=== PATIENT | female | born 1930 | race Hispanic/Latino ===

== ENCOUNTER 2017-04-30 08:07 | Outpatient (CLI) | payer MEDICARE | END 2017-04-30 08:08 | disposition home or self-care (01) | LOC: CT 08:07 | PROVIDERS: ATTEND Surgery Vascular Surgery | DX: I65.23 Occlusion and stenosis of bilateral carotid arteries (principal); I87.2 Venous insufficiency (chronic) (peripheral); J45.909 Unspecified asthma, uncomplicated; N18.2 Chronic kidney disease, stage 2 (mild); I11.0 Hypertensive heart disease with heart failure; I50.9 Heart failure, unspecified; J18.9 Pneumonia, unspecified organism; E78.00 Pure hypercholesterolemia, unspecified; Z87.891 Personal history of nicotine dependence | CPT/HCPCS: 36415; 82565; 84520 ==

== ENCOUNTER 2017-05-07 10:19 | Day surgery (SDC) | payer MEDICARE ==
[2017-05-07 11:26] LABS: BUN/Creatinine Ratio 22.27; Calcium 9.2 mg/dL (8.4-10.2); Chloride 100.2 mmol/L (98-107); Potassium 4.5 mmol/L (3.6-5.0)
[2017-05-07] MEDS ORDERED: NACL 0.9% 1000 ML 1,000 ML IV SCH (11:30)
[2017-05-07] MEDS ORDERED: NACL ONE (13:29)
--- NOTE | 2017-05-07 16:13 | Cat Scan Report ---
CT angiography of the neck with 3-D reconstructed images. History: Carotid stenosis. Findings: Comparison is made to the previous study on April 25, 2016. Since prior study, the patient undergone left endarterectomy. The previous described stenosis at the left carotid bulb is no longer present with a widely patent lumen at this level. Minimal residual nonobstructive calcific plaque is present. The stenotic lesion in the proximal right internal carotid artery is stable measuring 60% stenosis. No new lesions are seen within the internal carotid arteries. Calcified plaque in the left common carotid artery is stable measuring less than 50%. The vertebrobasilar system is patent with minimal stable calcified plaque is noted on the previous study. Impression: 1. Stable stenotic lesion in the right proximal internal carotid artery measuring approximately 60%. 2. Interval left carotid bulb endarterectomy as detailed above. 3. Stable calcified plaque in the left common carotid artery with less than 50% stenosis.
[2017-05-07 16:58] VITALS: BP 181/63
== END 2017-05-07 17:10 | disposition home or self-care (01) ==
LOC: CATHLABREC 10:19
PROVIDERS: ATTEND Surgery Vascular Surgery
DX: I65.23 Occlusion and stenosis of bilateral carotid arteries (principal); I10 Essential (primary) hypertension
CPT/HCPCS: 36415; 70498; 80048; 96360; 96361; J7030; Q9967

== ENCOUNTER 2017-05-08 12:45 | Outpatient (CLI) | payer MEDICARE ==
[2017-05-08 13:25] LABS: BUN/Creatinine Ratio 16.42; Calcium 8.8 mg/dL (8.4-10.2); Chloride 101.1 mmol/L (98-107); Potassium 4.1 mmol/L (3.6-5.0)
== END 2017-05-08 12:46 | disposition home or self-care (01) ==
LOC: LAB 12:45
PROVIDERS: ATTEND Internal Medicine Nephrology
DX: I12.9 Hypertensive chronic kidney disease with stage 1 through stage 4 chronic kidney disease, or unspecified chronic kidney disease (principal); N18.4 Chronic kidney disease, stage 4 (severe); E87.5 Hyperkalemia; R60.9 Edema, unspecified; T80.92XA Unspecified transfusion reaction, initial encounter
CPT/HCPCS: 36415; 80048

== ENCOUNTER 2017-05-20 11:06 | Outpatient (CLI) | payer MEDICARE ==
[2017-05-20 11:44] LABS: Albumin 3.9 g/dL (3.9-5); Calcium 8.9 mg/dL (8.4-10.2); Chloride 101.7 mmol/L (98-107); Phosphorous 4.3 mg/dL (2.5-4.5)
== END 2017-05-20 11:07 | disposition home or self-care (01) ==
LOC: LAB 11:06
PROVIDERS: ATTEND Internal Medicine Nephrology
DX: I13.0 Hypertensive heart and chronic kidney disease with heart failure and stage 1 through stage 4 chronic kidney disease, or unspecified chronic kidney disease (principal); N18.4 Chronic kidney disease, stage 4 (severe); I50.9 Heart failure, unspecified; E87.5 Hyperkalemia; R60.9 Edema, unspecified; R80.9 Proteinuria, unspecified
CPT/HCPCS: 36415; 80048; 82040; 84100

== ENCOUNTER 2017-10-20 11:27 | Outpatient (CLI) | payer MEDICARE | END 2017-10-20 11:28 | disposition home or self-care (01) | LOC: LABHHL 11:27 | PROVIDERS: ATTEND Internal Medicine Nephrology | DX: R82.99 Other abnormal findings in urine (principal) | CPT/HCPCS: 87086 ==

== ENCOUNTER 2017-12-10 10:49 | Outpatient (CLI) | payer MEDICARE ==
[2017-12-10 11:33] LABS: Albumin 4.3 g/dL (3.9-5); Calcium 9.3 mg/dL (8.4-10.2)
[2017-12-10 17:34] LABS: Bacteria,Urine 2+ /HPF (Negative); Bilirubin,Urine NEG (Negative); Blood,Urine NEG (Negative); Color,Urine Yellow (Yellow); Mucus,Urine FEW /HPF; Protein,Urine >500 mg/dL (Negative); Urobilinogen,Urine < 2.0 mg/dL (<2.0)
[2017-12-10 17:37] LABS: Creatinine,Urine 101.4 mg/dL (0.1-20.0)
[2017-12-10 17:50] LABS: Protein/Creatinine Ratio,Urine 3.23
== END 2017-12-10 10:50 | disposition home or self-care (01) ==
LOC: LAB 10:49
PROVIDERS: ATTEND Internal Medicine Nephrology
DX: I13.0 Hypertensive heart and chronic kidney disease with heart failure and stage 1 through stage 4 chronic kidney disease, or unspecified chronic kidney disease (principal); N18.4 Chronic kidney disease, stage 4 (severe); I50.9 Heart failure, unspecified; E78.00 Pure hypercholesterolemia, unspecified; J45.909 Unspecified asthma, uncomplicated; E03.9 Hypothyroidism, unspecified; Z87.891 Personal history of nicotine dependence
CPT/HCPCS: 36415; 80048; 81001; 82040; 82570; 84100; 84156

== ENCOUNTER 2017-12-15 12:02 | Outpatient (CLI) | payer MEDICARE | END 2017-12-15 12:03 | disposition home or self-care (01) | LOC: LAB 12:02 | DX: I11.0 Hypertensive heart disease with heart failure (principal); I50.9 Heart failure, unspecified; J45.909 Unspecified asthma, uncomplicated; E78.00 Pure hypercholesterolemia, unspecified; E03.9 Hypothyroidism, unspecified; R30.0 Dysuria; Z87.891 Personal history of nicotine dependence | CPT/HCPCS: 87086 ==

== ENCOUNTER 2017-12-27 19:52 | Inpatient (IN) | payer MEDICARE ==
[2017-12-27] MEDS ORDERED: CATAPRES PO ONE (21:56)
--- NOTE | 2017-12-27 21:59 | Emergency Department Report ---
HPI - General Chief Complaint: High BP Time Seen by Provider: 12/27/17 21:35 - HPI HPI: Room 22 The patient is an 87-year-old female presented with a chief complaint of headache and hypertension. Family states for the past month patient has had increasing episodes of forgetfulness and appears to be inadvertently walking into objects bruising her head. The patient apparently had a CAT scan of the head performed by her primary physician last week but the findings are unclear per family. Today the patient began complaining of headache and nausea so family continue to check her blood pressure and felt her persistently hypertensive with a maximum systolic of 202. This prompted family to bring the patient to the hospital. Currently the patient denies any complaints. Patient states she does not remember walking into objects Location: Mental state, see above Duration: One month Quality: Headache Severity: Currently 0/10 Modifying factors: [see above] Context: [see above] Mode of transportation: [not driving] ED Past Medical Hx - Past Medical History Previous Medical History?: Yes Hx Hypertension: Yes Hx GERD: Yes Hx Arthritis: Yes (KNEES) Hx Asthma: Yes - Surgical History Past Surgical History?: Yes Hx Open Heart Surgery: Yes (CABG III 2000) Hx Cholecystectomy: Yes Additional Surgical History: CABG - Family History Family history: no significant - Social History Smoking Status: Former Smoker (none 50 years) Substance Use Type: None - Medications Home Medications: Home Medications Medication Instructions Recorded Confirmed Last Taken Type Aspirin EC [Aspirin Enteric Coated 81 mg PO DAILY 03/24/15 06/19/17 06/18/17 History TAB] Cholecalciferol Vit D3 [Vitamin D3] 1,000 unit PO QDAY 03/24/15 06/19/17 History Ezetimibe [Zetia] 10 mg PO DAILY 03/24/15 06/19/17 05/06/17 History Levothyroxine [Synthroid] 150 mcg PO QAM 03/24/15 06/19/17 06/19/17 History Ranitidine HCl [Zantac 300 MG TAB] 300 mg PO DAILY 03/24/15 06/19/17 06/18/17 History Albuterol Sulfate [Proair Hfa] 2 puff IH Q4H PRN 04/25/16 06/19/17 05/06/17 History Nitroglycerin [Nitrostat] 0.4 mg SL Q5M PRN 04/25/16 06/19/17 1 Week Ago History ~06/03/16 [place]-3 Acid Ethyl Esters [Lovaza] 1 gm PO QDAY 06/10/16 06/19/17 06/18/17 History Ferrous Sulfate [Feosol 325 MG tab] 325 mg PO QDAY 09/30/16 06/19/17 05/06/17 History Clopidogrel [Plavix] 75 mg PO QDAY #30 tablet 10/10/16 06/19/17 05/06/17 Rx Bifidobacterium Infantis [Align] 10.5 mg PO DAILY 06/19/17 06/19/17 Unknown History Isosorbide Dinitrate 30 mg PO DAILY 06/19/17 06/19/17 06/19/17 History Omeprazole 20 mg PO QDAY 06/19/17 06/19/17 Unknown History Levofloxacin [Levaquin] 250 mg PO QDAY #5 tablet 06/22/17 Unknown Rx ED Review of Systems ROS: Stated complaint: ELEVATED BP Other details as noted in HPI Constitutional: no symptoms reported Eyes: denies: eye pain ENT: denies: throat pain Respiratory: denies: shortness of breath Cardiovascular: denies: chest pain Gastrointestinal: nausea. denies: abdominal pain Genitourinary: denies: dysuria Musculoskeletal: denies: back pain Neurological: headache Physical Exam - Physical Exam Vital Signs: Vital Signs 12/27/17 12/27/17 20:19 21:14 Temperature 98.8 F Pulse Rate 84 Respiratory 18 16 Rate Blood Pressure 215/61 O2 Sat by Pulse 95 95 Oximetry Physical Exam: GENERAL: The patient is well-developed well-nourished elderly female lying on stretcher not appearing to be in acute distress. [] HEENT: Normocephalic. Patient has various stages of bruising/ecchymosis about the forehead. Extraocular motions are intact. Patient has moist mucous membranes. NECK: Supple. Trachea midline CHEST/LUNGS: Clear to auscultation. There is no respiratory distress noted. HEART/CARDIOVASCULAR: Regular. There is no tachycardia. There is no gallop rub or murmur. ABDOMEN: Abdomen is soft, nontender. Patient has normal bowel sounds. There is no abdominal distention. SKIN: There is no rash. There is no edema. There is no diaphoresis. NEURO: The patient is awake, alert, and oriented. The patient is cooperative. Cranial nerves II through XII grossly intact with exception of decreased sensation in the left V1, V2 distribution. The patient has normal speech. There is no pronator drift. Patient moves all extremities well MUSCULOSKELETAL: There is no limitation range of motion. NIHSS= 1 LOC a. Alert= 0 Not alert but arousable to minor stimuli=1 Not alert requires repeated or strong stimuli to move= 2 Responds only reflex motor or unresponsive=3 b. asks month and age answers both correctly= 0 answers one correctly= 1 answers neither correctly= 2 Best Gaze normal= 0 abnormal in one or both but forced deviation or total paresis absent= 1 forced deviation or total gaze paresis= 2 Visual no visual loss= 0 partial hemianopia= 1 complete hemianopia= 2 bilateral hemianopia= 3 Facial Palsy normal= 0 minor paralysis= 1 partial paralysis= 2 complete paralysis= 3 Motor Arm no drift= 0 drift before 10 secs but doesnt hit bed= 1 some effort against gravity= 2 no effort against gravity= 3 no movement= 4 Motor leg no drift= 0 drift before 5 secs but doesnt hit bed= 1 drifts to bed before 5 secs= 2 no effort against gravity= 3 no movement= 4 Limb ataxia absent=0 present in one limb= 1 present in two limbs= 2 Sensory normal= 0 (+)mild sensory loss= 1 severe (unaware of being touched)= 2 Best language mild/some loss of fluency= 1 severe= 2 mute= 3 Dysarthria normal= 0 slurs some words= 1 severe/unintelligible= 2 Extinction and Inattention no abnormality= 0 visual, tactile, auditory or personal inattention= 1 profound (doesnt recognize own hand or orients to only one side= 2 ED Course Vital Signs 12/27/17 12/27/17 20:19 21:14 Temperature 98.8 F Pulse Rate 84 Respiratory 18 16 Rate Blood Pressure 215/61 O2 Sat by Pulse 95 95 Oximetry ED Medical Decision Making - Lab Data Result diagrams: 12/27/17 22:04 12/27/17 22:04 Laboratory Tests 12/27/17 12/27/17 12/27/17 22:04 22:04 22:04 WBC 8.2 RBC 3.99 Hgb 12.5 Hct 37.0 MCV 93 MCH 31 MCHC 34 RDW 13.8 Plt Count 187 Lymph % (Auto) 28.2 Hendricks % (Auto) 9.3 H Eos % (Auto) 5.5 H Baso % (Auto) 0.9 Lymph # 2.3 Hendricks # 0.8 Eos # 0.4 Baso # 0.1 Seg Neutrophils % 56.1 Seg Neutrophils # 4.6 PT 13.1 INR 0.95 APTT 31.8 Sodium 143 Potassium 3.6 Chloride 99.6 Carbon Dioxide 26 Anion Gap 21 BUN 29 H Creatinine 1.7 H Estimated GFR 28 BUN/Creatinine Ratio 17 Glucose 111 H Calcium 9.1 Total Creatine Kinase 65 CK-MB (CK-2) 2.4 CK-MB (CK-2) Rel Index 3.6 Troponin T < 0.010 - Radiology Data Radiology results: report reviewed (CT head), image reviewed (CT head) [facility] [address] [id number] Cat Scan Report Signed Patient: GEE SMITH MR#: [id number] : 1930 Acct:[id number] Age/Sex: 87 / F ADM Date: 12/27/17 Loc: ED Attending Dr: Ordering Physician: CHRISTOPHER LAYNE MD Date of Service: 12/27/17 Procedure(s): CT head/brain wo con Accession Number(s): [id number] cc: CHRISTOPHER LAYNE MD FINAL REPORT PROCEDURE: CT HEAD/BRAIN WO CON TECHNIQUE: Computerized tomography of the head was performed without contrast material. HISTORY: left facial numbness. Bruising on head COMPARISON: Prior CT scan of the brain 06/19/2017 FINDINGS: There is abnormal density visualized in the right parietal lobe posteriorly extending anteriorly medially adjacent to the medial aspect of the posterior horn of the right lateral ventricle with mass effect. A large amount of surrounding edema is present. This measures approximately 5.6 x 2.7 centimeter best visualized axial image 32 series 2. This is displacing the posterior horn of the right lateral ventricle anteriorly and causing midline shift right to left approximately 9 millimeters. A 2nd density appears to be present anterior to the anterior horn of the left lateral ventricle which appears to be extending medially with moderate surrounding edema. Involvement of the corpus callosum anterior and posterior may be present. There is no evidence of intracranial hemorrhage. No abnormal extra-axial fluid collections are visualized. Paranasal sinuses are clear. Mastoid air cells are hypoplastic although appear clear. No evidence of skull fracture. The skull is unremarkable. IMPRESSION: Abnormal lesions visualized posterior to the posterior horn of the right lateral ventricle extending medially and anterior to the anterior horn of the left lateral ventricle extending medially. These lesions may involve the corpus callosum. The differential would include metastatic disease, glioblastoma multiforme and central nervous system lymphoma. Aggressive demyelinating disease such as tumefactive multiple sclerosis can potentially present in this manner as well. There is a large amount of surrounding edema posteriorly on the right. There is midline shift right to left approximately 9 millimeters. No evidence of intracranial hemorrhage. Critical value: These findings were discussed in detail with Dr. Layne on 12/27/2017 at 10:48 p.m. Eastern standard time Transcribed By: DFN Dictated By: RIANNA BELTRAN MD Electronically Authenticated By: RIANNA BELTRAN MD Signed Date/Time: 12/27/172299 DD/ 99 TD/TT: 12/27/172299 - Differential Diagnosis CVA, subdural hematoma, dementia, electrolyte imbalance Critical care attestation.: If time is entered above; I have spent that time in minutes in the direct care of this critically ill patient, excluding procedure time. ED Disposition Clinical Impression: Left facial numbness, Memory loss, Intracranial mass Disposition: OP ADMIT IP TO THIS HOSP Is pt being admited?: Yes Does the pt Need Aspirin: No Condition: Serious Referrals: PRIMARY CARE, [Primary Care Provider] - 3-5 Days Time of Disposition: 23:25 (hospitalist notified (Dr Xavier))
[2017-12-27 22:22] LABS: Basophils # (Auto) 0.1 K/mm3 (0.0-0.1); Basophils % (Auto) 0.9 % (0.0-1.8); Eosinophils # (Auto) 0.4 K/mm3 (0.0-0.4); Eosinophils % (Auto) 5.5 % (0.0-4.3); Hemoglobin 12.5 gm/dl (10.1-14.3); Lymphocytes # (Auto) 2.3 K/mm3 (1.2-5.4); Lymphocytes % (Auto) 28.2 % (13.4-35.0); Mean Corpuscular HGB Conc 34 % (30-34); Mean Corpuscular Hemoglobin 31 pg (28-32); Mean Corpuscular Volume 93 fl (79-97); Monocytes # (Auto) 0.8 K/mm3 (0.0-0.8); Monocytes % (Auto) 9.3 % (0.0-7.3); Platelet Count 187 K/mm3 (140-440); Red Blood Count 3.99 M/mm3 (3.65-5.03); Red Cell Distribution Width 13.8 % (13.2-15.2)
[2017-12-27 22:39] LABS: INR 0.95 (0.87-1.13)
[2017-12-27 22:40] LABS: Partial Thromboplastin Time 31.8 Sec. (24.2-36.6)
[2017-12-27 22:44] LABS: Creatine Kinase MB 2.4 ng/mL (0.0-4.0)
[2017-12-27 22:48] LABS: BUN/Creatinine Ratio 17; Blood Urea Nitrogen 29 mg/dL (7-17); Calcium 9.1 mg/dL (8.4-10.2); Hemolysis Index 16
--- NOTE | 2017-12-27 23:04 | Cat Scan Report ---
FINAL REPORT PROCEDURE: CT HEAD/BRAIN WO CON TECHNIQUE: Computerized tomography of the head was performed without contrast material. HISTORY: left facial numbness. Bruising on head COMPARISON: Prior CT scan of the brain 06/19/2017 FINDINGS: There is abnormal density visualized in the right parietal lobe posteriorly extending anteriorly medially adjacent to the medial aspect of the posterior horn of the right lateral ventricle with mass effect. A large amount of surrounding edema is present. This measures approximately 5.6 x 2.7 centimeter best visualized axial image 32 series 2. This is displacing the posterior horn of the right lateral ventricle anteriorly and causing midline shift right to left approximately 9 millimeters. A 2nd density appears to be present anterior to the anterior horn of the left lateral ventricle which appears to be extending medially with moderate surrounding edema. Involvement of the corpus callosum anterior and posterior may be present. There is no evidence of intracranial hemorrhage. No abnormal extra-axial fluid collections are visualized. Paranasal sinuses are clear. Mastoid air cells are hypoplastic although appear clear. No evidence of skull fracture. The skull is unremarkable. IMPRESSION: Abnormal lesions visualized posterior to the posterior horn of the right lateral ventricle extending medially and anterior to the anterior horn of the left lateral ventricle extending medially. These lesions may involve the corpus callosum. The differential would include metastatic disease, glioblastoma multiforme and central nervous system lymphoma. Aggressive demyelinating disease such as tumefactive multiple sclerosis can potentially present in this manner as well. There is a large amount of surrounding edema posteriorly on the right. There is midline shift right to left approximately 9 millimeters. No evidence of intracranial hemorrhage. Critical value: These findings were discussed in detail with Dr. Ortega on 12/27/2017 at 10:48 p.m. [place] standard time
[2017-12-28] MEDS ORDERED: DECADRON IV ONE (00:40)
[2017-12-28] MEDS ORDERED: ATIVAN IV ONE (01:45)
[2017-12-28] MEDS ORDERED: ZOFRAN IV PRN (07:28)
[2017-12-28] MEDS ORDERED: SODIUM CHLORIDE FLUSH SYRINGE 10 ML IV PRN (07:28)
[2017-12-28] MEDS ORDERED: TYLENOL PO PRN (07:28)
--- NOTE | 2017-12-28 07:32 | History and Physical Report ---
History of Present Illness Date of examination: 12/28/17 Date of admission: 12/27/17 23:23 Chief complaint: Frequent falls Unsteady gait History of present illness: [place]: The patient is an 87-year-old female presented with a chief complaint of headache and hypertension. Also frequently bumping into objects and hurting herself with ec hymosis lesions on face and both lower extremities. Family states for the past month patient has had increasing episodes of forgetfulness and appears to be inadvertently walking into objects bruising her head. The patient apparently had a CAT scan of the head performed by her primary physician last week but the findings are unclear per family. Today the patient began complaining of headache and nausea so family continue to check her blood pressure and felt her persistently hypertensive with a maximum systolic of 202. This prompted family to bring the patient to the hospital. Currently the patient denies any complaints. Patient states she does not remember walking into objects Past Medical History Previous Medical History?: Yes Hx Hypertension: Yes Hx GERD: Yes Hx Arthritis: Yes (KNEES) Hx Asthma: Yes - Surgical History Past Surgical History?: Yes Hx Open Heart Surgery: Yes (CABG III 2000) Hx Cholecystectomy: Yes Additional Surgical History: CABG Family History Family history: no significant Social History Smoking Status: Former Smoker (none 50 years) Substance Use Type: None Medications Home Medications: Home Medications Medication Instructions Recorded Confirmed Last Taken Type Aspirin EC [Aspirin Enteric Coated 81 mg PO DAILY 03/24/15 06/19/17 06/18/17 History TAB] Cholecalciferol Vit D3 [Vitamin D3] 1,000 unit PO QDAY 03/24/15 06/19/17 History Ezetimibe [Zetia] 10 mg PO DAILY 03/24/15 06/19/17 05/06/17 History Levothyroxine [Synthroid] 150 mcg PO QAM 03/24/15 06/19/17 06/19/17 History Ranitidine HCl [Zantac 300 MG TAB] 300 mg PO DAILY 03/24/15 06/19/17 06/18/17 History Albuterol Sulfate [Proair Hfa] 2 puff IH Q4H PRN 04/25/16 06/19/17 05/06/17 History Nitroglycerin [Nitrostat] 0.4 mg SL Q5M PRN 04/25/16 06/19/17 1 Week Ago History ~10/24/16 [place]-3 Acid Ethyl Esters [Lovaza] 1 gm PO QDAY 06/10/16 06/19/17 06/18/17 History Ferrous Sulfate [Feosol 325 MG tab] 325 mg PO QDAY 09/30/16 06/19/17 05/06/17 History Clopidogrel [Plavix] 75 mg PO QDAY #30 tablet 10/10/16 06/19/17 05/06/17 Rx Bifidobacterium Infantis [Align] 10.5 mg PO DAILY 06/19/17 06/19/17 Unknown History Isosorbide Dinitrate 30 mg PO DAILY 06/19/17 06/19/17 06/19/17 History Omeprazole 20 mg PO QDAY 06/19/17 06/19/17 Unknown History Levofloxacin [Levaquin] 250 mg PO QDAY #5 tablet 06/22/17 Unknown Rx Review of Systems ROS: Stated complaint: ELEVATED BP Other details as noted in HPI Constitutional: no symptoms reported Eyes: denies: eye pain ENT: denies: throat pain Respiratory: denies: shortness of breath Cardiovascular: denies: chest pain Gastrointestinal: nausea. denies: abdominal pain Genitourinary: denies: dysuria Musculoskeletal: denies: back pain Neurological: headache Frequent falls and loss of memory/confusion Medications and Allergies Allergies Allergy/AdvReac Type Severity Reaction Status Date / Time cefaclor [From [facility]] Allergy Severe Swelling Verified 04/25/16 11:55 latex Allergy SORES Verified 05/23/16 16:31 Penicillins Allergy Swelling Verified 01/27/14 10:59 Sulfa (Sulfonamide Allergy Unknown Verified 01/27/14 10:59 Antibiotics) SURGICAL TAPE Allergy SORES Uncoded 05/23/16 16:31 Home Medications Medication Instructions Recorded Confirmed Last Taken Type Aspirin EC [Aspirin Enteric Coated 81 mg PO DAILY 03/24/15 12/28/17 1 Day Ago History TAB] ~12/27/17 Cholecalciferol Vit D3 [Vitamin D3] 5,000 unit PO QDAY 03/24/15 12/28/17 1 Day Ago History ~12/27/17 Levothyroxine [Synthroid] 125 mcg PO QAM 03/24/15 12/28/17 1 Day Ago History ~12/27/17 Ranitidine HCl [Zantac 300 MG TAB] 300 mg PO DAILY 03/24/15 12/28/17 1 Day Ago History ~12/27/17 [place]-3 Acid Ethyl Esters [Lovaza] 1 gm PO QDAY 06/10/16 12/28/17 1 Day Ago History ~12/27/17 Ferrous Sulfate [Feosol 325 MG tab] 325 mg PO QDAY 09/30/16 12/28/17 1 Day Ago History ~12/27/17 Bifidobacterium Infantis [Align] 10.5 mg PO DAILY 06/19/17 12/28/17 1 Day Ago History ~12/27/17 Amlodipine Besylate [Norvasc] 10 mg PO DAILY 12/28/17 12/28/17 1 Day Ago History ~12/27/17 AtorvaSTATin [Lipitor] 20 mg PO QHS 12/28/17 12/28/17 1 Day Ago History ~12/27/17 Furosemide [Lasix TAB] 40 mg PO QDAY 12/28/17 12/28/17 1 Day Ago History ~12/27/17 Metoprolol Xl [Metoprolol 25 mg PO QDAY 12/28/17 12/28/17 1 Day Ago History SUCCINATE ER TAB] ~12/27/17 Active Meds: Active Medications Acetaminophen (Tylenol) 650 mg PO Q4H PRN PRN Reason: Pain MILD(1-3)/Fever >100.5/SHABAZZ Dexamethasone (Decadron) 4 mg IV Q6HR RYLAN Famotidine (Pepcid) 20 mg IV BID RYLAN Dextrose/Sodium Chloride (D5ns) 1,000 mls @ 75 mls/hr IV DIRECT RYLAN Stop: 12/28/17 23:59 Morphine Sulfate (Morphine) 2 mg IV Q4H PRN PRN Reason: Pain, Moderate (4-6) Ondansetron HCl (Zofran) 4 mg IV Q8H PRN PRN Reason: Nausea And Vomiting Oxycodone/Acetaminophen (Percocet 5/325) 1 tab PO Q6H PRN PRN Reason: Pain, Moderate (4-6) Sodium Chloride (Sodium Chloride Flush Syringe 10 Ml) 10 ml IV BID RYLAN Sodium Chloride (Sodium Chloride Flush Syringe 10 Ml) 10 ml IV PRN PRN PRN Reason: LINE FLUSH Exam - Constitutional Vitals: Temp Pulse Resp BP Pulse Ox 98.8 F 102 H 16 171/93 91 12/27/17 20:19 12/28/17 04:44 12/28/17 00:22 12/28/17 00:28 12/28/17 00:28 General appearance: Present: no acute distress, well-nourished - EENT Eyes: Present: PERRL ENT: hearing intact, clear oral mucosa - Neck Neck: Present: supple, normal ROM - Respiratory Respiratory effort: normal Respiratory: bilateral: CTA - Cardiovascular Heart rate: 80 Rhythm: regular Heart Sounds: Present: S1 & S2. Absent: rub, click - Extremities Extremities: pulses symmetrical, No edema Peripheral Pulses: within normal limits - Abdominal General gastrointestinal: Present: soft, non-tender, non-distended, normal bowel sounds Female genitourinary: Present: normal - Rectal Rectal Exam: deferred - Integumentary Integumentary: Present: clear, warm, dry - Musculoskeletal Musculoskeletal: strength equal bilaterally, generalized weakness - Psychiatric Psychiatric: appropriate mood/affect, intact judgment & insight - Neurologic Neurologic: CNII-XII intact, moves all extremities, other (Unsteady gait) Results - Labs CBC & Chem 7: 12/27/17 22:04 12/27/17 22:04 Labs: Laboratory Last Values WBC 8.2 K/mm3 (4.5-11.0) 12/27/17 22:04 RBC 3.99 M/mm3 (3.65-5.03) 12/27/17 22:04 Hgb 12.5 gm/dl (10.1-14.3) 12/27/17 22:04 Hct 37.0 % (30.3-42.9) 12/27/17 22:04 MCV 93 fl (79-97) 12/27/17 22:04 MCH 31 pg (28-32) 12/27/17 22:04 MCHC 34 % (30-34) 12/27/17 22:04 RDW 13.8 % (13.2-15.2) 12/27/17 22:04 Plt Count 187 K/mm3 (140-440) 12/27/17 22:04 Lymph % (Auto) 28.2 % (13.4-35.0) 12/27/17 22:04 Gaines % (Auto) 9.3 % (0.0-7.3) H 12/27/17 22:04 Eos % (Auto) 5.5 % (0.0-4.3) H 12/27/17 22:04 Baso % (Auto) 0.9 % (0.0-1.8) 12/27/17 22:04 Lymph # 2.3 K/mm3 (1.2-5.4) 12/27/17 22:04 Gaines # 0.8 K/mm3 (0.0-0.8) 12/27/17 22:04 Eos # 0.4 K/mm3 (0.0-0.4) 12/27/17 22:04 Baso # 0.1 K/mm3 (0.0-0.1) 12/27/17 22:04 Seg Neutrophils % 56.1 % (40.0-70.0) 12/27/17 22:04 Seg Neutrophils # 4.6 K/mm3 (1.8-7.7) 12/27/17 22:04 PT 13.1 Sec. (12.2-14.9) 12/27/17 22:04 INR 0.95 (0.87-1.13) 12/27/17 22:04 APTT 31.8 Sec. (24.2-36.6) 12/27/17 22:04 Sodium 143 mmol/L (137-145) 12/27/17 22:04 Potassium 3.6 mmol/L (3.6-5.0) 12/27/17 22:04 Chloride 99.6 mmol/L (98-107) 12/27/17 22:04 Carbon Dioxide 26 mmol/L (22-30) 12/27/17 22:04 Anion Gap 21 mmol/L 12/27/17 22:04 BUN 29 mg/dL (7-17) H 12/27/17 22:04 Creatinine 1.7 mg/dL (0.7-1.2) H 12/27/17 22:04 Estimated GFR 28 ml/min 12/27/17 22:04 BUN/Creatinine Ratio 17 % 12/27/17 22:04 Glucose 111 mg/dL (65-100) H 12/27/17 22:04 Calcium 9.1 mg/dL (8.4-10.2) 12/27/17 22:04 Total Creatine Kinase 65 units/L (30-135) 12/27/17 22:04 CK-MB (CK-2) 2.4 ng/mL (0.0-4.0) 12/27/17 22:04 CK-MB (CK-2) Rel Index 3.6 (0-4) 12/27/17 22:04 Troponin T < 0.010 ng/mL (0.00-0.029) 12/27/17 22:04 - Imaging and Cardiology EKG: report reviewed Imaging and Cardiology: CT Head IMPRESSION: Abnormal lesions visualized posterior to the posterior horn of the right lateral ventricle extending medially and anterior to the anterior horn of the left lateral ventricle extending medially. These lesions may involve the corpus callosum. The differential would include metastatic disease, glioblastoma multiforme and central nervous system lymphoma. Aggressive demyelinating disease such as tumefactive multiple sclerosis can potentially present in this manner as well. There is a large amount of surrounding edema posteriorly on the right. There is midline shift right to left approximately 9 millimeters. No evidence of intracranial hemorrhage. Assessment and Plan Advance Directives: Yes (Full code) VTE prophylaxis?: Chemical Plan of care discussed with patient/family: Yes - Patient Problems (1) Intracranial mass Current Visit: Yes Status: Acute Plan to address problem: Unclear whether rimary or secondary MRI ordered Also chest CT to r/o any lung lesion IV decadron to decrease cerebral edema (2) Hypertension Current Visit: No Status: Acute Qualifiers: Hypertension type: essential hypertension Qualified Code(s): I10 - Essential (primary) hypertension Plan to address problem: Cont antihypertensives (3) JASON (acute kidney injury) Current Visit: Yes Status: Acute Plan to address problem: IV fluids for now Nephrology consult (4) Hypothyroid Current Visit: Yes Status: Chronic Qualifiers: Hypothyroidism type: acquired Qualified Code(s): E03.9 - Hypothyroidism, unspecified Plan to address problem: Cont synthyroid (5) HLD (hyperlipidemia) Current Visit: Yes Status: Chronic Qualifiers: Hyperlipidemia type: mixed hyperlipidemia Qualified Code(s): E78.2 - Mixed hyperlipidemia Plan to address problem: Will hold statins Myopathy is a possibility Given her age may not need statins (6) GERD (gastroesophageal reflux disease) Current Visit: Yes Status: Chronic Qualifiers: Esophagitis presence: without esophagitis Qualified Code(s): K21.9 - Gastro -esophageal reflux disease without esophagitis Plan to address problem: Cont PPI's (7) Cerebral edema Current Visit: Yes Status: Acute Plan to address problem: IV decadron to reduce edema (8) DVT prophylaxis Current Visit: Yes Status: Acute Plan to address problem: on Heparin
[2017-12-28] MEDS ORDERED: D5NS 1,000 ML IV SCH (08:00)
--- NOTE | 2017-12-28 08:30 | Progress Note ---
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 With edema and mass effect with midline shift, continue neuro checks , IV Decadron neuro workup is in progress , follow MRI/MRA Hematology oncology evaluation noted and appreciated CT abdomen and pelvis ,CT chest Neurology consult tomorrow, neurosurgery as needed --History of left carotid stenosis s/p left carotid endarterectomy [in 10/2016] Continue aspirin and statin --Acute on chronic kidney disease Stg IV; secondary to ATN Closely monitor renal function, avoid nephrotoxins Nephrology following --Hypertension; moderate control, continue current antihypertensives When necessary medications --Coronary artery disease status post CABG; Continue current cardiac medications, cardiology evaluation if needed --Ischemic cardiomyopathy; ejection fraction of 30-35% Continue anti-failure medications, input output monitoring, low sodium diet Fluid restriction --Chronic kidney disease stage IV; closely monitor renal function Avoid nephrotoxin, nephrology consulted --Hypothyroidism; stable on Synthroid --Dyslipidemia; continue lipid-lowering medications --DVT prophylaxis; heparin and renal dose --Full CODE STATUS Patient needs neurology and neurosurgery evaluation Both services are not available today neurology consult, tomorrow We will with the family the plan of care Unable to obtain CT abdomen/pelvis and CTchest with contrast In view of chronic kidney disease. History Interval history: Patient seen and examined this morning medical records reviewed Patient is sleeping, easily awakens, minimally communicative Admitted with brain lesion, with mass effect, on IV Decadron Neuro workup is in progress Hematology oncology consulted No new events reported by the nursing staff Vital signs reviewed Hospitalist Physical - Constitutional Vitals: Temp Pulse Resp BP Pulse Ox 98.8 F 102 H 16 171/93 91 12/27/17 20:19 12/28/17 04:44 12/28/17 00:22 12/28/17 00:28 12/28/17 00:28 General appearance: Present: no acute distress, well-nourished, other (sleeping and lethargic, minimally communicative) - EENT Eyes: Present: PERRL - Neck Neck: Present: supple, normal ROM - Respiratory Respiratory effort: normal Respiratory: bilateral: diminished, negative: rales, rhonchi, wheezing - Cardiovascular Rhythm: regular Heart Sounds: Present: S1 & S2 - Extremities Extremities: no ischemia, No edema - Abdominal General gastrointestinal: soft, non-tender, non-distended, normal bowel sounds - Integumentary Integumentary: Present: clear, warm - Psychiatric Psychiatric: appropriate mood/affect, other (minimally communicative) - Neurologic Neurologic: other (minimally communicative) Results - Labs CBC & Chem 7: 12/27/17 22:04 12/28/17 15:42 Labs: Laboratory Last Values WBC 8.2 K/mm3 (4.5-11.0) 12/27/17 22:04 RBC 3.99 M/mm3 (3.65-5.03) 12/27/17 22:04 Hgb 12.5 gm/dl (10.1-14.3) 12/27/17 22:04 Hct 37.0 % (30.3-42.9) 12/27/17 22:04 MCV 93 fl (79-97) 12/27/17 22:04 MCH 31 pg (28-32) 12/27/17 22:04 MCHC 34 % (30-34) 12/27/17 22:04 RDW 13.8 % (13.2-15.2) 12/27/17 22:04 Plt Count 187 K/mm3 (140-440) 12/27/17 22:04 Lymph % (Auto) 28.2 % (13.4-35.0) 12/27/17 22:04 Ray % (Auto) 9.3 % (0.0-7.3) H 12/27/17 22:04 Eos % (Auto) 5.5 % (0.0-4.3) H 12/27/17 22:04 Baso % (Auto) 0.9 % (0.0-1.8) 12/27/17 22:04 Lymph # 2.3 K/mm3 (1.2-5.4) 12/27/17 22:04 Ray # 0.8 K/mm3 (0.0-0.8) 12/27/17 22:04 Eos # 0.4 K/mm3 (0.0-0.4) 12/27/17 22:04 Baso # 0.1 K/mm3 (0.0-0.1) 12/27/17 22:04 Seg Neutrophils % 56.1 % (40.0-70.0) 12/27/17 22:04 Seg Neutrophils # 4.6 K/mm3 (1.8-7.7) 12/27/17 22:04 PT 13.1 Sec. (12.2-14.9) 12/27/17 22:04 INR 0.95 (0.87-1.13) 12/27/17 22:04 APTT 31.8 Sec. (24.2-36.6) 12/27/17 22:04 Sodium 143 mmol/L (137-145) 12/27/17 22:04 Potassium 3.6 mmol/L (3.6-5.0) 12/27/17 22:04 Chloride 99.6 mmol/L (98-107) 12/27/17 22:04 Carbon Dioxide 26 mmol/L (22-30) 12/27/17 22:04 Anion Gap 21 mmol/L 12/27/17 22:04 BUN 29 mg/dL (7-17) H 12/27/17 22:04 Creatinine 1.7 mg/dL (0.7-1.2) H 12/27/17 22:04 Estimated GFR 28 ml/min 12/27/17 22:04 BUN/Creatinine Ratio 17 % 12/27/17 22:04 Glucose 111 mg/dL (65-100) H 12/27/17 22:04 Calcium 9.1 mg/dL (8.4-10.2) 12/27/17 22:04 Total Creatine Kinase 65 units/L (30-135) 12/27/17 22:04 CK-MB (CK-2) 2.4 ng/mL (0.0-4.0) 12/27/17 22:04 CK-MB (CK-2) Rel Index 3.6 (0-4) 12/27/17 22:04 Troponin T < 0.010 ng/mL (0.00-0.029) 12/27/17 22:04
[2017-12-28] MEDS: DECADRON IV SCH ×3 (09:55→18:32)
[2017-12-28] MEDS ORDERED: NON-FORMULARY (Ranitidine Hcl [Zantac 300 Mg Tab] 300 MG) PO SCH (10:00)
[2017-12-28] MEDS ORDERED: PEPCID IV SCH (10:00)
[2017-12-28] MEDS: PEPCID PO SCH (10:36)
[2017-12-28] MEDS: HALFPRIN EC PO SCH (10:36)
[2017-12-28] MEDS: NORVASC PO SCH (10:36)
[2017-12-28] MEDS: SYNTHROID PO SCH (10:36)
[2017-12-28] MEDS: TOPROL XL PO SCH (10:36)
[2017-12-28] MEDS: SODIUM CHLORIDE FLUSH SYRINGE 10 ML IV SCH ×2 (10:37→22:27)
--- NOTE | 2017-12-28 13:14 | Hem/Onc Consultation ---
History of Present Illness - Reason for Consult Consult date: 12/28/17 - History of Present Illness Dictated Awaiting MRI of the head and CT chest abdomen pelvis. Will follow Medications and Allergies Allergies Allergy/AdvReac Type Severity Reaction Status Date / Time cefaclor [From Ceclor] Allergy Severe Swelling Verified 04/25/16 11:55 latex Allergy SORES Verified 05/23/16 16:31 Penicillins Allergy Swelling Verified 01/27/14 10:59 Sulfa (Sulfonamide Allergy Unknown Verified 01/27/14 10:59 Antibiotics) SURGICAL TAPE Allergy SORES Uncoded 05/23/16 16:31 Home Medications Medication Instructions Recorded Confirmed Last Taken Type Aspirin EC [Aspirin Enteric Coated 81 mg PO DAILY 03/24/15 12/28/17 1 Day Ago History TAB] ~12/27/17 Cholecalciferol Vit D3 [Vitamin D3] 5,000 unit PO QDAY 03/24/15 12/28/17 1 Day Ago History ~12/27/17 Levothyroxine [Synthroid] 125 mcg PO QAM 03/24/15 12/28/17 1 Day Ago History ~12/27/17 Ranitidine HCl [Zantac 300 MG TAB] 300 mg PO DAILY 03/24/15 12/28/17 1 Day Ago History ~12/27/17 [place]-3 Acid Ethyl Esters [Lovaza] 1 gm PO QDAY 06/10/16 12/28/17 1 Day Ago History ~12/27/17 Ferrous Sulfate [Feosol 325 MG tab] 325 mg PO QDAY 09/30/16 12/28/17 1 Day Ago History ~12/27/17 Bifidobacterium Infantis [Align] 10.5 mg PO DAILY 06/19/17 12/28/17 1 Day Ago History ~12/27/17 Amlodipine Besylate [Norvasc] 10 mg PO DAILY 12/28/17 12/28/17 1 Day Ago History ~12/27/17 AtorvaSTATin [Lipitor] 20 mg PO QHS 12/28/17 12/28/17 1 Day Ago History ~12/27/17 Furosemide [Lasix TAB] 40 mg PO QDAY 12/28/17 12/28/17 1 Day Ago History ~12/27/17 Metoprolol Xl [Metoprolol 25 mg PO QDAY 12/28/17 12/28/17 1 Day Ago History SUCCINATE ER TAB] ~12/27/17 Active Meds: Active Medications Acetaminophen (Tylenol) 650 mg PO Q4H PRN PRN Reason: Pain MILD(1-3)/Fever >100.5/SHABAZZ Amlodipine Besylate (Norvasc) 10 mg PO DAILY COUNT INCLUDES THE [facility] Last Admin: 12/28/17 10:36 Dose: 10 mg Aspirin (Halfprin Ec) 81 mg PO DAILY COUNT INCLUDES [facility] Last Admin: 12/28/17 10:36 Dose: 81 mg Dexamethasone (Decadron) 4 mg IV Q6HR COUNT INCLUDES THE [facility] Last Admin: 12/28/17 09:55 Dose: 4 mg Famotidine (Pepcid) 20 mg PO DAILY COUNT INCLUDES THE [facility] Last Admin: 12/28/17 10:36 Dose: 20 mg Hydralazine HCl (Apresoline) 25 mg PO Q8HR COUNT INCLUDES THE [facility] Hydralazine HCl (Apresoline) 10 mg IV Q4HR PRN PRN Reason: Hypertension Dextrose/Sodium Chloride (D5ns) 1,000 mls @ 75 mls/hr IV DIRECT COUNT INCLUDES THE [facility] Stop: 12/28/17 23:59 Levothyroxine Sodium (Synthroid) 125 mcg PO QAM COUNT INCLUDES THE [facility] Last Admin: 12/28/17 10:36 Dose: 125 mcg Metoprolol Succinate (Toprol Xl) 25 mg PO QDAY COUNT INCLUDES THE [facility] Last Admin: 12/28/17 10:36 Dose: 25 mg Morphine Sulfate (Morphine) 2 mg IV Q4H PRN PRN Reason: Pain, Moderate (4-6) Ondansetron HCl (Zofran) 4 mg IV Q8H PRN PRN Reason: Nausea And Vomiting Oxycodone/Acetaminophen (Percocet 5/325) 1 tab PO Q6H PRN PRN Reason: Pain, Moderate (4-6) Sodium Chloride (Sodium Chloride Flush Syringe 10 Ml) 10 ml IV BID COUNT INCLUDES THE [facility] Last Admin: 12/28/17 10:37 Dose: 10 ml Sodium Chloride (Sodium Chloride Flush Syringe 10 Ml) 10 ml IV PRN PRN PRN Reason: LINE FLUSH Exam - Constitutional Vitals: Last Vital Signs Temp 97.9 F 12/28/17 07:41 Pulse 102 H 12/28/17 04:44 Resp 18 12/28/17 07:41 BP 147/49 12/28/17 07:41 Pulse Ox 91 12/28/17 00:28 Results - Labs lab Results: Laboratory Results - last 24 hr 12/27/17 12/27/17 12/27/17 22:04 22:04 22:04 WBC 8.2 RBC 3.99 Hgb 12.5 Hct 37.0 MCV 93 MCH 31 MCHC 34 RDW 13.8 Plt Count 187 Lymph % (Auto) 28.2 [place] % (Auto) 9.3 H Eos % (Auto) 5.5 H Baso % (Auto) 0.9 Lymph # 2.3 [place] # 0.8 Eos # 0.4 Baso # 0.1 Seg Neutrophils % 56.1 Seg Neutrophils # 4.6 PT 13.1 INR 0.95 APTT 31.8 Sodium 143 Potassium 3.6 Chloride 99.6 Carbon Dioxide 26 Anion Gap 21 BUN 29 H Creatinine 1.7 H Estimated GFR 28 BUN/Creatinine Ratio 17 Glucose 111 H Calcium 9.1 Total Creatine Kinase 65 CK-MB (CK-2) 2.4 CK-MB (CK-2) Rel Index 3.6 Troponin T < 0.010
--- NOTE | 2017-12-28 13:17 | Event Note ---
Date: 12/28/17 Patient is being followed by [facility]. D/w .
[2017-12-28] MEDS: APRESOLINE IV PRN (15:32)
[2017-12-28] MEDS: APRESOLINE PO SCH ×2 (15:33→22:26)
[2017-12-28 16:48] LABS: Albumin 3.9 g/dL (3.9-5)
[2017-12-28] MEDS: MORPHINE IV PRN (22:35)
[2017-12-29] MEDS: DECADRON IV SCH ×4 (00:30→18:43)
--- NOTE | 2017-12-29 03:38 | Consultation ---
REFERRING PHYSICIAN: Kallie Yeung MD REASON FOR CONSULTATION: Brain lesion. HISTORY OF PRESENT ILLNESS: The patient is an 87-year-old female who presented to the hospital with headache and hypertension. She has been frequently falling and held bumping into things with ecchymosis and bruises on the face and lower extremity. The family states that she has been more forgetful in the last month or so. Apparently, she had some CT scan done by her primary care physician, the results are not known. She was brought to the hospital and her blood pressure was very high, systolic of greater than [address]. [address] of the head on 12/27/2017, in the Emergency Room where she was found to have abnormal lesions visualized posterior to the posterior horn of the right lateral ventricle extending medially and anterior to the anterior horn of the left lateral ventricle, extending medially. These lesions, possibly involve corpus callosum. There was also a large amount of surrounding edema on the right and there was a midline shift on the left approximately 9 mm. No hemorrhage was noted. She is to get an MRI of the head and CT chest, abdomen, and pelvis. The patient also has been started on dexamethasone along with antihypertensives. There is no previous history of malignancy according to the chart. She has had heart disease and CABG in 2000. She used to smoke, quit 50 years ago. PHYSICAL EXAMINATION: GENERAL: The patient is awake and slightly confused. CHEST: Clear. CARDIOVASCULAR: Regular rate and rhythm. ABDOMEN: Soft. EXTREMITIES: No clubbing, cyanosis, or edema. NEUROLOGICAL: The patient is confused. LABORATORY DATA: Hemoglobin 12.5, white count 8.2, platelets 187,000. Creatinine 1.7. ASSESSMENT: 1. Brain lesions in this elderly patient with bouts of confusion and dizzy spells. 2. Hypertension. 3. History of tobacco abuse in the past. 4. Advanced age. PLAN: At this time, I agree with MRI of the head. CT of the chest is ordered. I will order a CT of the abdomen and pelvis without contrast since the creatinine is high. We will follow. If nonmetastatic, may need brain biopsy and I will be discussing that with the patient's family members who were not available right now. JOB# [id number] ELIASS/NTS
[2017-12-29 05:29] LABS: Basophils % (Auto) 0.1 % (0.0-1.8); Hematocrit 33.8 % (30.3-42.9); Hemoglobin 11.7 gm/dl (10.1-14.3); Lymphocytes # (Auto) 0.9 K/mm3 (1.2-5.4); Lymphocytes % (Auto) 8.5 % (13.4-35.0); Mean Corpuscular HGB Conc 35 % (30-34); Mean Corpuscular Hemoglobin 32 pg (28-32); Mean Corpuscular Volume 91 fl (79-97); Monocytes # (Auto) 0.2 K/mm3 (0.0-0.8); Monocytes % (Auto) 2.2 % (0.0-7.3); Platelet Count 196 K/mm3 (140-440); Red Blood Count 3.71 M/mm3 (3.65-5.03)
[2017-12-29 05:51] LABS: Calcium 8.4 mg/dL (8.4-10.2)
[2017-12-29] MEDS: APRESOLINE IV PRN (06:18)
[2017-12-29] MEDS: APRESOLINE PO SCH ×3 (06:18→22:32)
--- NOTE | 2017-12-29 09:13 | Hem/Onc Progress Note ---
Assessment and Plan f/u on scans will d/w family once results back agree with neuro eval Subjective Date of service: 12/29/17 Interval history: pt more alert awaiting mri ct done Objective - Exam Narrative Exam: sl confused - Constitutional Vitals: Last Vital Signs Temp 97.6 F 12/29/17 08:08 Pulse 72 12/29/17 08:08 Resp 22 12/29/17 08:08 BP 158/49 12/29/17 08:08 Pulse Ox 94 12/29/17 08:08 Pain Intensity (0-10): denies any pain General appearance: no acute distress - Neck Neck: supple - Respiratory Respiratory effort: Positive: normal Respiratory: bilateral: diminished - Cardiovascular Rhythm: regular Extremities: No edema - Gastrointestinal General gastrointestinal: Present: soft - Labs Lab Results: Laboratory Results - last 24 hr 12/28/17 12/28/17 12/29/17 15:42 15:42 04:41 WBC 11.1 H RBC 3.71 Hgb 11.7 Hct 33.8 MCV 91 MCH 32 MCHC 35 H RDW 14.0 Plt Count 196 Lymph % (Auto) 8.5 L [place] % (Auto) 2.2 Eos % (Auto) 0.0 Baso % (Auto) 0.1 Lymph # 0.9 L [place] # 0.2 Eos # 0.0 Baso # 0.0 Seg Neutrophils % 89.2 H Seg Neutrophils # 9.9 H Sodium 139 Potassium 3.8 Chloride 99.9 Carbon Dioxide 27 Anion Gap 16 BUN 34 H Creatinine 1.9 H Estimated GFR 25 BUN/Creatinine Ratio 18 Glucose 149 H Hemoglobin A1c 4.7 Calcium 9.0 Total Bilirubin 0.40 AST 19 ALT 9 Alkaline Phosphatase 52 Total Protein 6.1 L Albumin 3.9 Albumin/Globulin Ratio 1.8 12/29/17 04:41 WBC RBC Hgb Hct MCV MCH MCHC RDW Plt Count Lymph % (Auto) [place] % (Auto) Eos % (Auto) Baso % (Auto) Lymph # [place] # Eos # Baso # Seg Neutrophils % Seg Neutrophils # Sodium 141 Potassium 4.0 Chloride 99.5 Carbon Dioxide 24 Anion Gap 22 BUN 41 H Creatinine 2.0 H Estimated GFR 24 BUN/Creatinine Ratio 21 Glucose 143 H Hemoglobin A1c Calcium 8.4 Total Bilirubin AST ALT Alkaline Phosphatase Total Protein Albumin Albumin/Globulin Ratio
--- NOTE | 2017-12-29 09:38 | Cat Scan Report ---
CT chest and abdomen without contrast: Brain lesion for evaluation of etiology. Transverse images were obtained from the thoracic inlet to the ischium with coronal and sagittal 2-D reformatted images. No axillary, hilar, or mediastinal adenopathy identified. The central airways are patent. The thoracic aorta is normal in size and contour with heavy mural calcification. Coronary vascular calcification also present. Sternal sutures from coronary bypass. Suspect mild enlargement of the heart. Large non-reduced hiatus hernia. No pulmonary nodules nor infiltrates identified. Area of curvilinear atelectasis in the left lower lobe. No pleural thickening. Sections through the abdomen demonstrate relatively unremarkable the abdominal organs. There are some mild calcifications in the spleen. There is mild ladarius-renal streaking bilaterally. A tiny lower pole left renal calcification is noted. No renal masses. The unopacified bowel and mesentery appear grossly normal. There is a moderate diameter thecal matter in the colon. No distention. The abdominal aorta and iliac arteries are heavily calcified but normal in contour and size. No pelvic masses. The uterus has been removed. Compression changes with sclerosis involving the L2 and L3 vertebral bodies with obliteration of disc space. Markedly degenerative changes also noted at L1. as well as apophyseal joints in the mid and lower spine. The bones are generally demineralized. Impressions: 1. No evidence of pulmonary or abdominal mass. 2. Cardiac enlargement with bypass. 3. Degenerative bony and vascular changes as described above.
[2017-12-29] MEDS: HALFPRIN EC PO SCH (10:36)
[2017-12-29] MEDS: PEPCID PO SCH (10:36)
[2017-12-29] MEDS: NORVASC PO SCH (10:36)
[2017-12-29] MEDS: TOPROL XL PO SCH (10:36)
[2017-12-29] MEDS: SYNTHROID PO SCH (10:37)
[2017-12-29] MEDS: SODIUM CHLORIDE FLUSH SYRINGE 10 ML IV SCH ×2 (10:39→22:33)
--- NOTE | 2017-12-29 10:52 | Consultation ---
History of Present Illness - Reason for Consult Consult date: 12/29/17 chronic renal failure, accelerated hypertension Requesting physician: SENIA ELLISON - History of Present Illness The patient is an 87-year-old female presented with a chief complaint of headache and hypertension. Also frequently bumping into objects and hurting herself with ec hymosis lesions on face and both lower extremities. Family states for the past month patient has had increasing episodes of forgetfulness and appears to be inadvertently walking into objects bruising her head. The patient apparently had a CAT scan of the head performed by her primary physician last week but the findings are unclear per family. Today the patient began complaining of headache and nausea so family continue to check her blood pressure and felt her persistently hypertensive with a maximum systolic of 202. This prompted family to bring the patient to the hospital. Currently the patient denies any complaints. Patient states she does not remember walking into objects Past Medical History Previous Medical History?: Yes Hx Hypertension: Yes Hx GERD: Yes Hx Arthritis: Yes (KNEES) Hx Asthma: Yes - Surgical History Past Surgical History?: Yes Hx Open Heart Surgery: Yes (CABG III 2000) Hx Cholecystectomy: Yes Additional Surgical History: CABG Family History Family history: no significant Social History Smoking Status: Former Smoker (none 50 years) Substance Use Type: None Medications Home Medications: Home Medications Medication Instructions Recorded Confirmed Last Taken Type Aspirin EC [Aspirin Enteric Coated 81 mg PO DAILY 03/24/15 06/19/17 06/18/17 History TAB] Cholecalciferol Vit D3 [Vitamin D3] 1,000 unit PO QDAY 03/24/15 06/19/17 History Ezetimibe [Zetia] 10 mg PO DAILY 03/24/15 06/19/17 05/06/17 History Levothyroxine [Synthroid] 150 mcg PO QAM 03/24/15 06/19/17 06/19/17 History Ranitidine HCl [Zantac 300 MG TAB] 300 mg PO DAILY 03/24/15 06/19/17 06/18/17 History Albuterol Sulfate [Proair Hfa] 2 puff IH Q4H PRN 04/25/16 06/19/17 05/06/17 History Nitroglycerin [Nitrostat] 0.4 mg SL Q5M PRN 04/25/16 06/19/17 1 Week Ago History ~06/03/16 [place]-3 Acid Ethyl Esters [Lovaza] 1 gm PO QDAY 06/10/16 06/19/17 06/18/17 History Ferrous Sulfate [Feosol 325 MG tab] 325 mg PO QDAY 09/30/16 06/19/17 05/06/17 History Clopidogrel [Plavix] 75 mg PO QDAY #30 tablet 10/10/16 06/19/17 05/06/17 Rx Bifidobacterium Infantis [Align] 10.5 mg PO DAILY 06/19/17 06/19/17 Unknown History Isosorbide Dinitrate 30 mg PO DAILY 06/19/17 06/19/17 06/19/17 History Omeprazole 20 mg PO QDAY 06/19/17 06/19/17 Unknown History Levofloxacin [Levaquin] 250 mg PO QDAY #5 tablet 06/22/17 Unknown Rx Review of Systems ROS: Stated complaint: ELEVATED BP Other details as noted in HPI Constitutional: no symptoms reported Eyes: denies: eye pain ENT: denies: throat pain Respiratory: denies: shortness of breath Cardiovascular: denies: chest pain Gastrointestinal: nausea. denies: abdominal pain Genitourinary: denies: dysuria Musculoskeletal: denies: back pain Neurological: headache Frequent falls and loss of memory/confusion Medications and Allergies Allergies Allergy/AdvReac Type Severity Reaction Status Date / Time cefaclor [[facility]] Allergy Severe Swelling Verified 04/25/16 11:55 latex Allergy SORES Verified 05/23/16 16:31 Penicillins Allergy Swelling Verified 01/27/14 10:59 Sulfa (Sulfonamide Allergy Unknown Verified 01/27/14 10:59 Antibiotics) SURGICAL TAPE Allergy SORES Uncoded 05/23/16 16:31 Home Medications Medication Instructions Recorded Confirmed Last Taken Type Aspirin EC [Aspirin Enteric Coated 81 mg PO DAILY 03/24/15 12/28/17 1 Day Ago History TAB] ~12/27/17 Cholecalciferol Vit D3 [Vitamin D3] 5,000 unit PO QDAY 03/24/15 12/28/17 1 Day Ago History ~12/27/17 Levothyroxine [Synthroid] 125 mcg PO QAM 03/24/15 12/28/17 1 Day Ago History ~12/27/17 Ranitidine HCl [Zantac 300 MG TAB] 300 mg PO DAILY 03/24/15 12/28/17 1 Day Ago History ~12/27/17 [place]-3 Acid Ethyl Esters [Lovaza] 1 gm PO QDAY 06/10/16 12/28/17 1 Day Ago History ~12/27/17 Ferrous Sulfate [Feosol 325 MG tab] 325 mg PO QDAY 09/30/16 12/28/17 1 Day Ago History ~12/27/17 Bifidobacterium Infantis [Align] 10.5 mg PO DAILY 06/19/17 12/28/17 1 Day Ago History ~12/27/17 Amlodipine Besylate [Norvasc] 10 mg PO DAILY 12/28/17 12/28/17 1 Day Ago History ~12/27/17 AtorvaSTATin [Lipitor] 20 mg PO QHS 12/28/17 12/28/17 1 Day Ago History ~12/27/17 Furosemide [Lasix TAB] 40 mg PO QDAY 12/28/17 12/28/17 1 Day Ago History ~12/27/17 Metoprolol Xl [Metoprolol 25 mg PO QDAY 12/28/17 12/28/17 1 Day Ago History SUCCINATE ER TAB] ~12/27/17 Active Meds: Active Medications Acetaminophen (Tylenol) 650 mg PO Q4H PRN PRN Reason: Pain MILD(1-3)/Fever >100.5/SHABAZZ Amlodipine Besylate (Norvasc) 10 mg PO DAILY [facility] Last Admin: 12/29/17 10:36 Dose: 10 mg Aspirin (Halfprin Ec) 81 mg PO DAILY [facility] Last Admin: 12/29/17 10:36 Dose: 81 mg Dexamethasone (Decadron) 4 mg IV Q6HR [facility] Last Admin: 12/29/17 06:16 Dose: 4 mg Famotidine (Pepcid) 20 mg PO DAILY [facility] Last Admin: 12/29/17 10:36 Dose: 20 mg Hydralazine HCl (Apresoline) 25 mg PO Q8HR [facility] Last Admin: 12/29/17 06:18 Dose: 25 mg Hydralazine HCl (Apresoline) 10 mg IV Q4HR PRN PRN Reason: Hypertension Last Admin: 12/29/17 06:18 Dose: 10 mg Levothyroxine Sodium (Synthroid) 125 mcg PO QAM [facility] Last Admin: 12/29/17 10:37 Dose: 125 mcg Metoprolol Succinate (Toprol Xl) 25 mg PO QDAY [facility] Last Admin: 12/29/17 10:36 Dose: 25 mg Morphine Sulfate (Morphine) 2 mg IV Q4H PRN PRN Reason: Pain, Moderate (4-6) Last Admin: 12/28/17 22:35 Dose: 2 mg Ondansetron HCl (Zofran) 4 mg IV Q8H PRN PRN Reason: Nausea And Vomiting Oxycodone/Acetaminophen (Percocet 5/325) 1 tab PO Q6H PRN PRN Reason: Pain, Moderate (4-6) Sodium Chloride (Sodium Chloride Flush Syringe 10 Ml) 10 ml IV BID [facility] Last Admin: 12/29/17 10:39 Dose: 10 ml Sodium Chloride (Sodium Chloride Flush Syringe 10 Ml) 10 ml IV PRN PRN PRN Reason: LINE FLUSH Exam - Vital Signs Vital signs: Vital Signs Pulse Ox 99 12/27/17 20:04 - Physical Exam Narrative exam: General appearance: Present: no acute distress, well-nourished - EENT Eyes: Present: PERRL ENT: hearing intact, clear oral mucosa - Neck Neck: Present: supple, normal ROM - Respiratory Respiratory effort: normal Respiratory: bilateral: CTA - Cardiovascular Heart rate: 80 Rhythm: regular Heart Sounds: Present: S1 & S2. Absent: rub, click - Extremities Extremities: pulses symmetrical, No edema Peripheral Pulses: within normal limits - Abdominal General gastrointestinal: Present: soft, non-tender, non-distended, normal bowel sounds Female genitourinary: Present: normal - Rectal Rectal Exam: deferred - Integumentary Integumentary: Present: clear, warm, dry - Musculoskeletal Musculoskeletal: strength equal bilaterally, generalized weakness - Psychiatric Psychiatric: appropriate mood/affect, intact judgment & insight Results - Lab Results 12/29/17 04:41 12/29/17 04:41 Most recent lab results Calcium 8.4 mg/dL (8.4-10.2) 12/29/17 04:41 Assessment and Plan Impression: * Stage IV chronic kidney disease * Accelerated HTN * altered mental status * UTI * Hypertension * Anemia secondary to CKD * Carotid artery disease - followed by Dr. Schultz Plan: * Renal function is at baseline. Continue current mangement * control bp * Add iv abx for uti * follow up daily lytes * AMS work up per primary team. * Abx per primary team * Avoid potential nephrotoxins * Dose medications for renal function
[2017-12-29] MEDS ORDERED: NACL 0.45% 1000 ML 1,000 ML IV SCH (12:00)
[2017-12-29] MEDS: LEVAQUIN 250MG/50ML 250 MG/50 ML BAG IV SCH (13:31)
--- NOTE | 2017-12-29 14:48 | Magnetic Resonance Report ---
MRI BRAIN WITHOUT CONTRAST: 12/29/17 CLINICAL: Brain lesion/cerebral edema. TECHNIQUE: Axial diffusion, T1, T2, gradient echo T2*, coronal and axial FLAIR and sagittal T1 sequences on a 1.5 Marcie magnet without contrast. IV contrast was not given because of poor renal function and an estimated GFR of 24. FINDINGS: No restricted diffusion. An oval slightly irregular right occipital lobe mass measures 4.1 x 2.7 cm. It involves the splenium of the corpus callosum and extends into right occipital lobe white matter. The mass demonstrates heterogeneous hyperintense T2 signal on diffusion, T2 and FLAIR sequences. Mass effect on the right occipital horn along with asymmetric enlargement of the right lateral ventricle. Mass effect and a left midline shift of approximately 5 mm. No evidence of hemorrhage. There is also suggestion of a second lesion arising from the rostrum of the corpus callosum and extending into the left frontal lobe white matter. This lesion is hyperintense on the diffusion sequence with corresponding hypointensity on ADC map and the pattern is more typical of T2 shine through than restricted diffusion. It measures approximately 2 x 2 by 1 cm. The left lateral ventricle and frontal horn of the left lateral ventricle are also enlarged. Marked vasogenic edema involves the right occipital lobe white matter but there is also pronounced bilateral multilobar white matter hyperintensity on T2 and FLAIR. Normal pituitary and optic chiasm. The brainstem and cerebellum are normal. Intact vascular flow voids. Normal sinuses. The orbits, and soft tissues are normal. Normal calvarium and skull base. IMPRESSION: A 4.1 x 2.7 cm right occipital lobe mass involving the white matter and extending into the splenium of the corpus callosum. A probable second similar lesion of the left frontal lobe mass arising from the rostrum of the corpus callosum. The exact size and number of lesions would be better determine with a contrast exam. These lesions are superimposed on a background of white matter disease. The differential diagnosis includes glioblastoma, astrocytoma, lymphoma, tumefactive multiple sclerosis and tumefactive ADEM. No evidence of acute/subacute infarct or hemorrhage.
--- NOTE | 2017-12-29 14:51 | Progress Note ---
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 with midline shift, and cerebral edema on IV Decadron Patient is more alert and awake oriented today Follow MRI without contrast[unable to do with contrast in view of renal failure] CT abdomen and pelvis ,CT chest; negative for any evidence of malignancy Hematology oncology following, Neurology consult requested , Patient has a private neurosurgeon,Dr.Paul Tolentino, that she saw in the past However , family is not keen on aggressive management at this point We will discuss patient's condition with him if needed --History of left carotid stenosis s/p left carotid endarterectomy [in 10/2016] Continue aspirin and statin --Acute on chronic kidney disease Stg IV; secondary to ATN Closely monitor renal function, avoid nephrotoxins Nephrology following --Hypertension; moderate control, continue current antihypertensives When necessary medications --Coronary artery disease status post CABG; Continue current cardiac medications, cardiology evaluation if needed --Ischemic cardiomyopathy; ejection fraction of 30-35% Continue anti-failure medications, input output monitoring, low sodium diet Fluid restriction --Chronic kidney disease stage IV; closely monitor renal function Avoid nephrotoxin, nephrology consulted --Hypothyroidism; stable on Synthroid --Dyslipidemia; continue lipid-lowering medications --DVT prophylaxis; heparin and renal dose --DO NOT RESUSCITATE Family do not want aggressive management at this point Discussed patient's condition plan of care extensively with family members Mainly the daughter who is her POA. Patient has a living will, and POA and family requested DO NOT RESUSCITATE status History Interval history: Patient seen and examined medical records reviewed Multiple family members at the bedside patient is more alert and awake oriented 2 and cheerful today No new complaints CT abdomen and pelvis, CT chest without contrast negative for any malignant lesions Unable to do with contrast due to acute on chronic renal failure MRI without contrast scheduled for today Vital signs reviewed stable Hospitalist Physical - Constitutional Vitals: Temp Pulse Resp BP Pulse Ox 97.5 F L 72 20 146/52 91 12/29/17 13:42 12/29/17 14:06 12/29/17 13:42 12/29/17 14:06 12/29/17 13:42 General appearance: Present: no acute distress, well-nourished, other (sleeping and lethargic, minimally communicative) - EENT Eyes: Present: PERRL, EOM intact - Neck Neck: Present: supple, normal ROM - Respiratory Respiratory effort: normal Respiratory: negative: rales, rhonchi, wheezing - Cardiovascular Rhythm: regular Heart Sounds: Present: S1 & S2 - Extremities Extremities: no ischemia, No edema - Abdominal General gastrointestinal: soft, non-tender, non-distended, normal bowel sounds - Integumentary Integumentary: Present: clear, warm - Psychiatric Psychiatric: appropriate mood/affect, other (confused sometimes) - Neurologic Neurologic: moves all extremities Results - Labs CBC & Chem 7: 12/29/17 04:41 12/31/17 05:36 Labs: Laboratory Last Values WBC 11.1 K/mm3 (4.5-11.0) H 12/29/17 04:41 RBC 3.71 M/mm3 (3.65-5.03) 12/29/17 04:41 Hgb 11.7 gm/dl (10.1-14.3) 12/29/17 04:41 Hct 33.8 % (30.3-42.9) 12/29/17 04:41 MCV 91 fl (79-97) 12/29/17 04:41 MCH 32 pg (28-32) 12/29/17 04:41 MCHC 35 % (30-34) H 12/29/17 04:41 RDW 14.0 % (13.2-15.2) 12/29/17 04:41 Plt Count 196 K/mm3 (140-440) 12/29/17 04:41 Lymph % (Auto) 8.5 % (13.4-35.0) L 12/29/17 04:41 [place] % (Auto) 2.2 % (0.0-7.3) 12/29/17 04:41 Eos % (Auto) 0.0 % (0.0-4.3) 12/29/17 04:41 Baso % (Auto) 0.1 % (0.0-1.8) 12/29/17 04:41 Lymph # 0.9 K/mm3 (1.2-5.4) L 12/29/17 04:41 [place] # 0.2 K/mm3 (0.0-0.8) 12/29/17 04:41 Eos # 0.0 K/mm3 (0.0-0.4) 12/29/17 04:41 Baso # 0.0 K/mm3 (0.0-0.1) 12/29/17 04:41 Seg Neutrophils % 89.2 % (40.0-70.0) H 12/29/17 04:41 Seg Neutrophils # 9.9 K/mm3 (1.8-7.7) H 12/29/17 04:41 PT 13.1 Sec. (12.2-14.9) 12/27/17 22:04 INR 0.95 (0.87-1.13) 12/27/17 22:04 APTT 31.8 Sec. (24.2-36.6) 12/27/17 22:04 Sodium 141 mmol/L (137-145) 12/29/17 04:41 Potassium 4.0 mmol/L (3.6-5.0) 12/29/17 04:41 Chloride 99.5 mmol/L (98-107) 12/29/17 04:41 Carbon Dioxide 24 mmol/L (22-30) 12/29/17 04:41 Anion Gap 22 mmol/L 12/29/17 04:41 BUN 41 mg/dL (7-17) H 12/29/17 04:41 Creatinine 2.0 mg/dL (0.7-1.2) H 12/29/17 04:41 Estimated GFR 24 ml/min 12/29/17 04:41 BUN/Creatinine Ratio 21 % 12/29/17 04:41 Glucose 143 mg/dL (65-100) H 12/29/17 04:41 Hemoglobin A1c 4.7 % (4-6) 12/28/17 15:42 Calcium 8.4 mg/dL (8.4-10.2) 12/29/17 04:41 Total Bilirubin 0.40 mg/dL (0.1-1.2) 12/28/17 15:42 AST 19 units/L (5-40) 12/28/17 15:42 ALT 9 units/L (7-56) 12/28/17 15:42 Alkaline Phosphatase 52 units/L (35-129) 12/28/17 15:42 Total Creatine Kinase 65 units/L (30-135) 12/27/17 22:04 CK-MB (CK-2) 2.4 ng/mL (0.0-4.0) 12/27/17 22:04 CK-MB (CK-2) Rel Index 3.6 (0-4) 12/27/17 22:04 Troponin T < 0.010 ng/mL (0.00-0.029) 12/27/17 22:04 Total Protein 6.1 g/dL (6.3-8.2) L 12/28/17 15:42 Albumin 3.9 g/dL (3.9-5) 12/28/17 15:42 Albumin/Globulin Ratio 1.8 % 12/28/17 15:42
--- NOTE | 2017-12-29 19:08 | Event Note ---
Date: 12/29/17 Called and discussed the MRI report with Patient's daughter Darlin Ventura[POA] [phone] 4.12.7 right occipital lobe mass involving the white matter and extending into the splenium and corpus callosum differential diagnosis include glioblastoma astrocytoma lymphoma ,tumefactive ADEM no subacute infarct or hemorrhage. Unable to get MRI with contrast due to renal failure Family discussing about LTAC/SNF placement with hospice Do not want aggressive workup and management patient is DO NOT RESUSCITATE status Continue steroids and supportive care Follow neurology consult, To determine the plan of care
[2017-12-29] MEDS: PERCOCET 5/325 PO PRN (21:00)
[2017-12-30] MEDS: MORPHINE IV PRN (02:10)
[2017-12-30] MEDS: APRESOLINE IV PRN (06:04)
[2017-12-30] MEDS: DECADRON IV SCH ×4 (06:05→17:44)
[2017-12-30] MEDS: APRESOLINE PO SCH ×3 (06:05→21:59)
[2017-12-30 06:32] LABS: Calcium 8.4 mg/dL (8.4-10.2)
--- NOTE | 2017-12-30 09:13 | Hem/Onc Progress Note ---
Assessment and Plan d/w daughter Darlin- pao poor they don't want any aggressive intervention- I would get hospice involved and daughter agrees. will order Subjective Date of service: 12/30/17 Interval history: pt more alert mri findings noted ct findings noted Objective - Exam Narrative Exam: sl confused. was much more confused last night as per rn. had run of vtach - Constitutional Vitals: Last Vital Signs Temp 98.7 F 12/30/17 07:53 Pulse 77 12/30/17 07:53 Resp 20 12/30/17 07:53 BP 187/48 12/30/17 07:53 Pulse Ox 91 12/30/17 07:53 General appearance: no acute distress - Cardiovascular Rhythm: regular Extremities: No edema - Gastrointestinal General gastrointestinal: Present: soft - Labs Lab Results: Laboratory Results - last 24 hr 12/30/17 05:17 Sodium 140 Potassium 3.9 Chloride 97.2 L Carbon Dioxide 24 Anion Gap 23 BUN 48 H Creatinine 2.1 H Estimated GFR 22 BUN/Creatinine Ratio 23 Glucose 123 H Calcium 8.4
--- NOTE | 2017-12-30 09:39 | Consultation ---
HISTORY OF PRESENT ILLNESS: This is an 87-year-old white female that is seen without the availability of any cross history from family members. Her history is extremely vague indicates she has had several falls, striking the right forehead, left periorbital area in the midline across the scalp line anteriorly, which may have represented a seizure. At this point, the patient is confused, cannot provide details as to what happened, seems altogether very encephalopathic as far as memory both recent and past. She cannot tell me the name of her doctor; apparently has seen, according to her history, Dr. Vazquez in the past, but she cannot tell me exactly why. Presently, she comes in denying that she is taking any medication. She does not drink, does not smoke. PHYSICAL EXAMINATION: VITAL SIGNS: Blood pressure is 114/70, pulse rate 80, respirations 18. NEUROLOGIC: Cranial nerves II through XII are intact. She is disoriented x 3. She appears to have expressive aphasia. The patient has symmetrical geotechnical field technician. No tremors. No focal seizure activity present. No drift to extremities. IMPRESSION: I have reviewed both her CT scan of the head and also her MRI with Dr. Wilde. There is definitely a change from the prior CT. There is a new lesion that has developed in the right parietotemporal occipital area in the junction in the posterior, in the deep white matter, which has all the appearance of either metastatic disease or glioblastoma multiforme. There is a separate lesion present in the left mid frontal region in the deep white matter, also suggestive of a tumor, which may have spread along the corpus callosum In addition to this, the patient has age-related changes of ischemic white matter disease, which is quite advanced compatible with cerebral atrophy, but also has a secondary process of expansive lesion in the right hemisphere as well as a separate lesion in the left hemisphere which of course may be simply an extension of the lesion along the corpus callosum typical of primary brain tumors. Plan to speak with family members at their convenience regarding prior history. I am not sure whether she has had a biopsy previously or if she is noted to be followed for this. 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 There may have also been a seizure in addition, and she probably should be started on seizure medicine such as Keppra. Prognosis at this point is not good, given the extensive nature of the ischemic white matter changes as well as the new development of what appears to be a primary brain tumor. JOB# [id number] RAJESH/RAJAT
[2017-12-30] MEDS: SYNTHROID PO SCH (09:48)
[2017-12-30] MEDS: PEPCID PO SCH (09:48)
[2017-12-30] MEDS: LEVAQUIN 250MG/50ML 250 MG/50 ML BAG IV SCH (09:48)
[2017-12-30] MEDS: SODIUM CHLORIDE FLUSH SYRINGE 10 ML IV SCH ×2 (09:48→21:59)
[2017-12-30] MEDS: HALFPRIN EC PO SCH (09:49)
[2017-12-30] MEDS: NORVASC PO SCH (09:49)
[2017-12-30] MEDS: TOPROL XL PO SCH (09:49)
--- NOTE | 2017-12-30 10:23 | Progress Note ---
Assessment and Plan Impression: * Stage IV chronic kidney disease * Accelerated HTN * altered mental status * UTI * Hypertension * brain mass * Anemia secondary to CKD * Carotid artery disease - followed by Dr. Schultz Plan: * Renal function is at baseline. Continue current mangement * control bp * Added iv abx for uti * gentle ivfs * follow up daily lytes * AMS work up per primary team. * Abx per primary team * Avoid potential nephrotoxins * Dose medications for renal function Subjective Date of service: 12/30/17 Principal diagnosis: johnie on ckd Interval history: resting in bed today Objective - Exam Narrative Exam: General appearance: Present: no acute distress, well-nourished - EENT Eyes: Present: PERRL ENT: hearing intact, clear oral mucosa - Neck Neck: Present: supple, normal ROM - Respiratory Respiratory effort: normal Respiratory: bilateral: CTA - Cardiovascular Heart rate: 80 Rhythm: regular Heart Sounds: Present: S1 & S2. Absent: rub, click - Extremities Extremities: pulses symmetrical, No edema Peripheral Pulses: within normal limits - Abdominal General gastrointestinal: Present: soft, non-tender, non-distended, normal bowel sounds Female genitourinary: Present: normal - Rectal Rectal Exam: deferred - Integumentary Integumentary: Present: clear, warm, dry - Musculoskeletal Musculoskeletal: strength equal bilaterally, generalized weakness - Psychiatric Psychiatric: appropriate mood/affect, intact judgment & insight - Vital Signs Vital signs: Vital Signs - 12hr 12/30/17 12/30/17 12/30/17 02:10 02:40 03:36 Temperature 98.3 F Pulse Rate 66 Respiratory 20 16 18 Rate Blood Pressure 198/52 O2 Sat by Pulse 93 Oximetry 12/30/17 12/30/17 12/30/17 03:37 06:04 06:05 Temperature Pulse Rate 69 66 66 Respiratory Rate Blood Pressure 198/52 198/52 O2 Sat by Pulse 93 Oximetry 12/30/17 12/30/17 07:53 09:49 Temperature 98.7 F Pulse Rate 77 77 Respiratory 20 Rate Blood Pressure 187/48 187/48 O2 Sat by Pulse 91 Oximetry - Lab 12/29/17 04:41 12/30/17 05:17 Most recent lab results Calcium 8.4 mg/dL (8.4-10.2) 12/30/17 05:17
[2017-12-30] MEDS: PERCOCET 5/325 PO PRN (10:31)
--- NOTE | 2017-12-30 16:10 | Progress Note ---
Assessment and Plan Assessment and plan: Discussed in detail with the family members mainly Ms. Adalberto Ventura[daughter/ POA] Patient's condition, CT and MRI findings, diagnosis ,poor prognosis I personally discussed, hematology oncologist Dr. Malave discussed the prognosis --Family did not want aggressive workup or management And Requested SNF placement as well as hospice Patient is DO NOT RESUSCITATE status --Neurology [Dr. 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 metastatic lesion with midline shift, and cerebral edema on IV Decadron Patient is more alert and awake oriented today Follow MRI without contrast[unable to do with contrast in view of renal failure] CT abdomen and pelvis ,CT chest; negative for any evidence of malignancy Hematology oncology following, Neurology consult requested , Patient has a private neurosurgeon,Dr.Paul Tolentino, that she saw in the past Family does not want aggressive management in view of advanced age and her DO NOT RESUSCITATE status We will discuss patient's condition and MRI /CT brain findings with neurosurgeon if needed --History of left carotid stenosis s/p left carotid endarterectomy [in 10/2016] Continue aspirin and statin --Acute on chronic kidney disease Stg IV; secondary to ATN Closely monitor renal function, avoid nephrotoxins Nephrology following --Hypertension; moderate control, continue current antihypertensives When necessary medications --Coronary artery disease status post CABG; Continue current cardiac medications, cardiology evaluation if needed --Ischemic cardiomyopathy; ejection fraction of 30-35% Continue anti-failure medications, input output monitoring, low sodium diet Fluid restriction --Chronic kidney disease stage IV; closely monitor renal function Avoid nephrotoxin, nephrology consulted --Hypothyroidism; stable on Synthroid --Dyslipidemia; continue lipid-lowering medications --DVT prophylaxis; heparin and renal dose --DO NOT RESUSCITATE Discharge planning. Case management; SNF placement, hospice evaluation History Interval history: Patient seen and examined medical records reviewed Patient and family[POA] did not want aggressive workup and management Requested [facility] placement and hospice services manufacturing project manager was informed and his processing Patient looks cheerful and better not in acute distress Confused at times No new complaints and the nursing Vital signs reviewed Hospitalist Physical - Constitutional Vitals: Temp Pulse Resp BP Pulse Ox 97.5 F L 71 16 195/63 90 12/30/17 14:12 12/30/17 14:25 12/30/17 14:12 12/30/17 14:25 12/30/17 14:12 General appearance: Present: no acute distress, well-nourished, other (cheerful , responding to simple questions, confused at times) - EENT Eyes: Present: PERRL, EOM intact - Neck Neck: Present: supple, normal ROM - Respiratory Respiratory effort: normal Respiratory: negative: rales, rhonchi, wheezing - Cardiovascular Rhythm: regular Heart Sounds: Present: S1 & S2 - Extremities Extremities: no ischemia, No edema - Abdominal General gastrointestinal: soft, non-tender, non-distended, normal bowel sounds - Integumentary Integumentary: Present: clear, warm - Psychiatric Psychiatric: cooperative, other (confused at times) - Neurologic Neurologic: moves all extremities Results - Labs CBC & Chem 7: 12/29/17 04:41 12/31/17 05:36 Labs: Laboratory Last Values WBC 11.1 K/mm3 (4.5-11.0) H 12/29/17 04:41 RBC 3.71 M/mm3 (3.65-5.03) 12/29/17 04:41 Hgb 11.7 gm/dl (10.1-14.3) 12/29/17 04:41 Hct 33.8 % (30.3-42.9) 12/29/17 04:41 MCV 91 fl (79-97) 12/29/17 04:41 MCH 32 pg (28-32) 12/29/17 04:41 MCHC 35 % (30-34) H 12/29/17 04:41 RDW 14.0 % (13.2-15.2) 12/29/17 04:41 Plt Count 196 K/mm3 (140-440) 12/29/17 04:41 Lymph % (Auto) 8.5 % (13.4-35.0) L 12/29/17 04:41 [place] % (Auto) 2.2 % (0.0-7.3) 12/29/17 04:41 Eos % (Auto) 0.0 % (0.0-4.3) 12/29/17 04:41 Baso % (Auto) 0.1 % (0.0-1.8) 12/29/17 04:41 Lymph # 0.9 K/mm3 (1.2-5.4) L 12/29/17 04:41 [place] # 0.2 K/mm3 (0.0-0.8) 12/29/17 04:41 Eos # 0.0 K/mm3 (0.0-0.4) 12/29/17 04:41 Baso # 0.0 K/mm3 (0.0-0.1) 12/29/17 04:41 Seg Neutrophils % 89.2 % (40.0-70.0) H 12/29/17 04:41 Seg Neutrophils # 9.9 K/mm3 (1.8-7.7) H 12/29/17 04:41 PT 13.1 Sec. (12.2-14.9) 12/27/17 22:04 INR 0.95 (0.87-1.13) 12/27/17 22:04 APTT 31.8 Sec. (24.2-36.6) 12/27/17 22:04 Sodium 140 mmol/L (137-145) 12/30/17 05:17 Potassium 3.9 mmol/L (3.6-5.0) 12/30/17 05:17 Chloride 97.2 mmol/L (98-107) L 12/30/17 05:17 Carbon Dioxide 24 mmol/L (22-30) 12/30/17 05:17 Anion Gap 23 mmol/L 12/30/17 05:17 BUN 48 mg/dL (7-17) H 12/30/17 05:17 Creatinine 2.1 mg/dL (0.7-1.2) H 12/30/17 05:17 Estimated GFR 22 ml/min 12/30/17 05:17 BUN/Creatinine Ratio 23 % 12/30/17 05:17 Glucose 123 mg/dL (65-100) H 12/30/17 05:17 Hemoglobin A1c 4.7 % (4-6) 12/28/17 15:42 Calcium 8.4 mg/dL (8.4-10.2) 12/30/17 05:17 Total Bilirubin 0.40 mg/dL (0.1-1.2) 12/28/17 15:42 AST 19 units/L (5-40) 12/28/17 15:42 ALT 9 units/L (7-56) 12/28/17 15:42 Alkaline Phosphatase 52 units/L (35-129) 12/28/17 15:42 Total Creatine Kinase 65 units/L (30-135) 12/27/17 22:04 CK-MB (CK-2) 2.4 ng/mL (0.0-4.0) 12/27/17 22:04 CK-MB (CK-2) Rel Index 3.6 (0-4) 12/27/17 22:04 Troponin T < 0.010 ng/mL (0.00-0.029) 12/27/17 22:04 Total Protein 6.1 g/dL (6.3-8.2) L 12/28/17 15:42 Albumin 3.9 g/dL (3.9-5) 12/28/17 15:42 Albumin/Globulin Ratio 1.8 % 12/28/17 15:42
[2017-12-30] MEDS ORDERED: KEPPRA 1,000 MG/NS 0.75% 100ML 1,000 MG/100 ML BAG IV ONE (16:30)
[2017-12-30] MEDS: KEPPRA PO SCH (21:59)
[2017-12-31] MEDS: DECADRON IV SCH ×2 (00:06→06:12)
[2017-12-31] MEDS: APRESOLINE IV PRN (00:07)
[2017-12-31] MEDS: MORPHINE IV PRN (00:07)
[2017-12-31 06:06] LABS: Calcium 8.1 mg/dL (8.4-10.2)
[2017-12-31] MEDS: PERCOCET 5/325 PO PRN ×2 (06:12→13:45)
[2017-12-31] MEDS: APRESOLINE PO SCH ×2 (06:12→11:44)
--- NOTE | 2017-12-31 10:00 | Progress Note ---
Assessment and Plan Impression: * Stage IV chronic kidney disease * Accelerated HTN * altered mental status * UTI * Hypertension * brain mass * Anemia secondary to CKD * Carotid artery disease - followed by Dr. Schultz Plan: * Renal function is at baseline. Continue current mangement * control bp * Added iv abx for uti * gentle ivfs * follow up daily lytes * AMS work up per primary team. * Abx per primary team * Avoid potential nephrotoxins * Dose medications for renal function * recommend hospice, no nephrology intervention needed * ok to dc from renal standpoint Subjective Date of service: 12/31/17 Principal diagnosis: johnie on ckd Interval history: resting in bed today Objective - Exam Narrative Exam: General appearance: Present: no acute distress, well-nourished - EENT Eyes: Present: PERRL ENT: hearing intact, clear oral mucosa - Neck Neck: Present: supple, normal ROM - Respiratory Respiratory effort: normal Respiratory: bilateral: CTA - Cardiovascular Heart rate: 80 Rhythm: regular Heart Sounds: Present: S1 & S2. Absent: rub, click - Extremities Extremities: pulses symmetrical, No edema Peripheral Pulses: within normal limits - Abdominal General gastrointestinal: Present: soft, non-tender, non-distended, normal bowel sounds Female genitourinary: Present: normal - Rectal Rectal Exam: deferred - Integumentary Integumentary: Present: clear, warm, dry - Musculoskeletal Musculoskeletal: strength equal bilaterally, generalized weakness - Psychiatric Psychiatric: appropriate mood/affect, intact judgment & insight - Vital Signs Vital signs: Vital Signs - 12hr 12/30/17 12/31/17 12/31/17 22:00 00:00 00:07 Temperature Pulse Rate Respiratory 20 20 Rate Respiratory 20 Rate [ Generalized] Blood Pressure 185/58 O2 Sat by Pulse Oximetry 12/31/17 12/31/17 12/31/17 00:37 02:26 02:42 Temperature 98.3 F Pulse Rate 78 Respiratory 20 20 Rate Respiratory Rate [ Generalized] Blood Pressure 175/59 O2 Sat by Pulse 92 Oximetry 12/31/17 12/31/17 12/31/17 06:12 07:12 07:46 Temperature 98.5 F Pulse Rate 83 Respiratory 20 20 22 Rate Respiratory Rate [ Generalized] Blood Pressure 164/54 O2 Sat by Pulse 91 Oximetry - Lab 12/29/17 04:41 12/31/17 05:36 Most recent lab results Calcium 8.1 mg/dL (8.4-10.2) L 12/31/17 05:36
[2017-12-31] MEDS ORDERED: DECADRON IV SCH (11:00)
[2017-12-31] MEDS: PEPCID PO SCH (11:42)
[2017-12-31] MEDS: NORVASC PO SCH (11:43)
[2017-12-31] MEDS: TOPROL XL PO SCH (11:44)
[2017-12-31] MEDS: HALFPRIN EC PO SCH (11:45)
[2017-12-31] MEDS: SYNTHROID PO SCH (11:46)
[2017-12-31] MEDS: KEPPRA PO SCH (11:46)
[2017-12-31] MEDS: LEVAQUIN 250MG/50ML 250 MG/50 ML BAG IV SCH (13:48)
[2017-12-31] MEDS: SODIUM CHLORIDE FLUSH SYRINGE 10 ML IV SCH (13:48)
--- NOTE | 2017-12-31 14:30 | Discharge Summary ---
Providers - Providers Date of Admission: 12/27/17 23:23 Date of discharge: 12/31/17 Attending physician: KIMBERLY ANDRES 12/28/17 07:00 Physical Therapy Evaluation and Treat [CONS] Routine Comment: Reason For Exam: Unsteady gait Speech Therapy Evaluation and Treat [CONS] Routine Reason For Exam: Confusion 12/28/17 07:28 Consult to Physician [CONS] Routine Comment: Consulting Provider: LEIA BREWER Physician Instructions: Reason For Exam: Brain Tumor 12/28/17 18:24 Consult to Physician [CONS] Routine Comment: Consulting Provider: MONIQUE ORLANDO Physician Instructions: Reason For Exam: Ac on CKD 3 12/29/17 07:56 Consult to Physician [CONS] Routine Comment: dr. schmitt/ [place] Consulting Provider: MATTHEW PATEL Physician Instructions: Reason For Exam: AMS/brain lesion/cerebral edema Primary care physician: DINKEY MECHANIC Hospitalization Condition: Serious Disposition: DC-50 TO HOSPICE (HOME) Time spent for discharge: 35 min Core Measure Documentation - Palliative Care Palliative Care/ Comfort Measures: Not Applicable - Core Measures Any of the following diagnoses?: none Exam - Constitutional Vitals: Temp Pulse Resp BP Pulse Ox 98.5 F 83 22 164/54 91 12/31/17 07:46 12/31/17 07:46 12/31/17 07:46 12/31/17 07:46 12/31/17 07:46 General appearance: Present: no acute distress, well-nourished, other (confused) - EENT Eyes: Present: PERRL, EOM intact - Neck Neck: Present: supple - Respiratory Respiratory effort: normal Respiratory: bilateral: diminished, negative: rales, rhonchi, wheezing - Cardiovascular Rhythm: regular Heart Sounds: Present: S1 & S2 - Extremities Extremities: no ischemia, No edema - Abdominal General gastrointestinal: Present: soft, non-tender, non-distended, normal bowel sounds - Integumentary Integumentary: Present: clear, warm - Musculoskeletal Musculoskeletal: generalized weakness - Psychiatric Psychiatric: cooperative, other (confused) - Neurologic Neurologic: moves all extremities Plan Activity: advance as tolerated, fall precautions, other (seizure precautions) Diet: other (diet as tolerated) Additional Instructions: Further management per biomedical electronics technician Follow up with: PRIMARY CARE, [Primary Care Provider] - 3-5 Days ROHIT CARRIZALES MD [Staff Physician] - 7 Days Prescriptions: Dexamethasone [Decadron] 4 mg PO Q8H #30 tablet levETIRAcetam [Keppra TAB] 500 mg PO BID #60 tablet
[2017-12-31 15:58] VITALS: BP 174/46
== END 2017-12-31 18:30 | disposition hospice, home (50) | DRG 682 ==
LOC: ED 19:52 → 2B-ACE 23:23
PROVIDERS: ADMIT Internal Medicine; ATTEND Internal Medicine
DX: N17.0 Acute kidney failure with tubular necrosis (principal); G93.6 Cerebral edema; N39.0 Urinary tract infection, site not specified; R90.0 Intracranial space-occupying lesion found on diagnostic imaging of central nervous system; N18.4 Chronic kidney disease, stage 4 (severe); Z99.2 Dependence on renal dialysis; Z88.0 Allergy status to penicillin; Z88.2 Allergy status to sulfonamides; Z88.8 Allergy status to other drugs, medicaments and biological substances; Z79.82 Long term (current) use of aspirin; I12.9 Hypertensive chronic kidney disease with stage 1 through stage 4 chronic kidney disease, or unspecified chronic kidney disease; K21.9 Gastro-esophageal reflux disease without esophagitis; J45.909 Unspecified asthma, uncomplicated; Z95.1 Presence of aortocoronary bypass graft; Z87.891 Personal history of nicotine dependence; E78.5 Hyperlipidemia, unspecified; E03.9 Hypothyroidism, unspecified; I25.10 Atherosclerotic heart disease of native coronary artery without angina pectoris; I25.5 Ischemic cardiomyopathy; D63.1 Anemia in chronic kidney disease; Z66 Do not resuscitate; G93.9 Disorder of brain, unspecified
CPT/HCPCS: 36415; 70450; 70551; 71250; 74176; 80048; 80053; 82550; 82553; 83036; 84484; 85025; 85610; 85730; G8978-GP; G8979-GP; G8996-GN; G8997-GN; G8998-GN; J0360; J1100; J1953; J1956; J2060; J2270; J7042

== ENCOUNTER 2018-02-22 19:37 | Emergency (ER) | payer MEDICARE ==
--- NOTE | 2018-02-22 20:35 | Emergency Department Report ---
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 She is on hospice, DNR/DNI. Medical decision maker is her daughter who is not here. Granddaughter is her breast trimmer who is here. Deputy Coroner reports this spot on the left side of her neck has been present for a long time. Ms Ventura gets in home hospice care through [facility]. I spoke with the hospice nurse: [phone]. Per breast trimmer, patient is at her baseline. Awakens, answers questions. denies any pain. - Related Data Home Medications Medication Instructions Recorded Confirmed Last Taken Aspirin EC [Aspirin Enteric Coated 81 mg PO DAILY 03/24/15 12/28/17 1 Day Ago TAB] ~12/27/17 Cholecalciferol Vit D3 [Vitamin D3] 5,000 unit PO QDAY 03/24/15 12/28/17 1 Day Ago ~12/27/17 Levothyroxine [Synthroid] 125 mcg PO QAM 03/24/15 12/28/17 1 Day Ago ~12/27/17 Ranitidine HCl [Zantac 300 MG TAB] 300 mg PO DAILY 03/24/15 12/28/17 1 Day Ago ~12/27/17 [place]-3 Acid Ethyl Esters [Lovaza] 1 gm PO QDAY 06/10/16 12/28/17 1 Day Ago ~12/27/17 Ferrous Sulfate [Feosol 325 MG tab] 325 mg PO QDAY 09/30/16 12/28/17 1 Day Ago ~12/27/17 Bifidobacterium Infantis [Align] 10.5 mg PO DAILY 06/19/17 12/28/17 1 Day Ago ~12/27/17 Amlodipine Besylate [Norvasc] 10 mg PO DAILY 12/28/17 12/28/17 1 Day Ago ~12/27/17 AtorvaSTATin [Lipitor] 20 mg PO QHS 12/28/17 12/28/17 1 Day Ago ~12/27/17 Furosemide [Lasix TAB] 40 mg PO QDAY 12/28/17 12/28/17 1 Day Ago ~12/27/17 Metoprolol Xl [Metoprolol 25 mg PO QDAY 12/28/17 12/28/17 1 Day Ago SUCCINATE ER TAB] ~12/27/17 Previous Rx's Medication Instructions Recorded Last Taken Type Dexamethasone [Decadron] 4 mg PO Q8H #30 tablet 12/31/17 Unknown Rx levETIRAcetam [Keppra TAB] 500 mg PO BID #60 tablet 12/31/17 Unknown Rx Allergies Allergy/AdvReac Type Severity Reaction Status Date / Time [facility] Allergy Severe Swelling Verified 04/25/16 11:55 latex Allergy SORES Verified 05/23/16 16:31 Penicillins Allergy Swelling Verified 01/27/14 10:59 Sulfa (Sulfonamide Allergy Unknown Verified 01/27/14 10:59 Antibiotics) SURGICAL TAPE Allergy SORES Uncoded 05/23/16 16:31 ED Review of Systems ROS: Stated complaint: LUMP ON NECK Other details as noted in HPI Comment: Unobtainable due to pts medical conditions ED Past Medical Hx - Past Medical History Previous Medical History?: Yes Hx Hypertension: Yes Hx Congestive Heart Failure: Yes Hx Diabetes: No Hx GERD: Yes Hx Liver Disease: No 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 Lupus - Surgical History Past Surgical History?: Yes Hx Open Heart Surgery: Yes (CABG III 2000) Hx Cholecystectomy: Yes Additional Surgical History: CABG - Social History Smoking Status: Unknown if ever smoked Substance Use Type: None - Medications Home Medications: Home Medications Medication Instructions Recorded Confirmed Last Taken Type Aspirin EC [Aspirin Enteric Coated 81 mg PO DAILY 03/24/15 12/28/17 1 Day Ago History TAB] ~12/27/17 Cholecalciferol Vit D3 [Vitamin D3] 5,000 unit PO QDAY 03/24/15 12/28/17 1 Day Ago History ~12/27/17 Levothyroxine [Synthroid] 125 mcg PO QAM 03/24/15 12/28/17 1 Day Ago History ~12/27/17 Ranitidine HCl [Zantac 300 MG TAB] 300 mg PO DAILY 03/24/15 12/28/17 1 Day Ago History ~12/27/17 [place]-3 Acid Ethyl Esters [Lovaza] 1 gm PO QDAY 06/10/16 12/28/17 1 Day Ago History ~12/27/17 Ferrous Sulfate [Feosol 325 MG tab] 325 mg PO QDAY 09/30/16 12/28/17 1 Day Ago History ~12/27/17 Bifidobacterium Infantis [Align] 10.5 mg PO DAILY 06/19/17 12/28/17 1 Day Ago History ~12/27/17 Amlodipine Besylate [Norvasc] 10 mg PO DAILY 12/28/17 12/28/17 1 Day Ago History ~12/27/17 AtorvaSTATin [Lipitor] 20 mg PO QHS 12/28/17 12/28/17 1 Day Ago History ~12/27/17 Furosemide [Lasix TAB] 40 mg PO QDAY 12/28/17 12/28/17 1 Day Ago History ~12/27/17 Metoprolol Xl [Metoprolol 25 mg PO QDAY 12/28/17 12/28/17 1 Day Ago History SUCCINATE ER TAB] ~12/27/17 Dexamethasone [Decadron] 4 mg PO Q8H #30 tablet 12/31/17 Unknown Rx levETIRAcetam [Keppra TAB] 500 mg PO BID #60 tablet 12/31/17 Unknown Rx ED Physical Exam - General Limitations: No Limitations General appearance: alert, in no apparent distress - Head Head exam: Present: atraumatic, normocephalic - Eye Eye exam: Present: normal appearance, PERRL, EOMI - ENT ENT exam: Present: normal exam, mucous membranes moist - Neck Neck exam: Present: normal inspection, other (3x2cm area of subcutanous swelling left neck. mobile, soft, non-tender. midline trachea. ). Absent: tenderness - Respiratory Respiratory exam: Present: normal lung sounds bilaterally. Absent: respiratory distress, wheezes, rales - Cardiovascular Cardiovascular Exam: Present: regular rate, normal rhythm - GI/Abdominal GI/Abdominal exam: Present: soft. Absent: distended, tenderness, guarding, rebound - Extremities Exam Extremities exam: Present: normal inspection, other (redness to both heels, stage 1 pressure sores). Absent: tenderness, pedal edema - Back Exam Back exam: Present: normal inspection. Absent: tenderness - Neurological Exam Neurological exam: Present: alert, other (oriented x 2) - Skin Skin exam: Present: warm, dry, intact ED Course Vital Signs 02/22/18 19:43 Temperature 97.5 F L Pulse Rate 80 Respiratory 18 Rate Blood Pressure 137/96 O2 Sat by Pulse 93 Oximetry ED Medical Decision Making - Lab Data Result diagrams: 02/22/18 20:49 02/22/18 20:49 Lab Results 02/22/18 02/22/18 02/22/18 Range/Units 20:49 20:49 20:49 WBC 16.3 H (4.5-11.0) K/mm3 RBC 4.65 (3.65-5.03) M/mm3 Hgb 14.6 H (10.1-14.3) gm/dl Hct 42.0 (30.3-42.9) % MCV 90 (79-97) fl MCH 31 (28-32) pg MCHC 35 H (30-34) % RDW 14.6 (13.2-15.2) % Plt Count 205 (140-440) K/mm3 Add Manual Diff Complete Total Counted 100 Seg Neutrophils % Brine Plant Operator Seg Neuts % (Manual) 91.0 H (40.0-70.0) % Band Neutrophils % 2.0 % Lymphocytes % (Manual) 2.0 L (13.4-35.0) % Reactive Lymphs % (Man) 0 % Monocytes % (Manual) 5.0 (0.0-7.3) % Eosinophils % (Manual) 0 (0.0-4.3) % Basophils % (Manual) 0 (0.0-1.8) % Metamyelocytes % 0 % Myelocytes % 0 % Promyelocytes % 0 % Blast Cells % 0 % Nucleated RBC % Not Reportable Seg Neutrophils # Man 14.8 H (1.8-7.7) K/mm3 Band Neutrophils # 0.3 K/mm3 Lymphocytes # (Manual) 0.3 L (1.2-5.4) K/mm3 Abs React Lymphs (Man) 0.0 K/mm3 Monocytes # (Manual) 0.8 (0.0-0.8) K/mm3 Eosinophils # (Manual) 0.0 (0.0-0.4) K/mm3 Basophils # (Manual) 0.0 (0.0-0.1) K/mm3 Metamyelocytes # 0.0 K/mm3 Myelocytes # 0.0 K/mm3 Promyelocytes # 0.0 K/mm3 Blast Cells # 0.0 K/mm3 WBC Morphology Not Reportable Hypersegmented Neuts Not Reportable Hyposegmented Neuts Not Reportable Hypogranular Neuts Not Reportable Smudge Cells Not Reportable Toxic Granulation Not Reportable Toxic Vacuolation Not Reportable Dohle Bodies Not Reportable Pelger-Huet Anomaly Not Reportable Rona Rods Not Reportable Platelet Estimate Appears normal Clumped Platelets Not Reportable Plt Clumps, EDTA Not Reportable Large Platelets Not Reportable Giant Platelets Not Reportable Platelet Satelliting Not Reportable Plt Morphology Comment Not Reportable RBC Morphology Not Reportable Dimorphic RBCs Not Reportable Polychromasia Not Reportable Hypochromasia Not Reportable Poikilocytosis 1+ Anisocytosis Not Reportable Microcytosis Not Reportable Macrocytosis Not Reportable Spherocytes Not Reportable Pappenheimer Bodies Not Reportable Sickle Cells Not Reportable Target Cells Not Reportable Tear Drop Cells Not Reportable Ovalocytes 1+ Helmet Cells Not Reportable Cheng-[place] Bodies Not Reportable [place] Rings Not Reportable Davis Cells Not Reportable Bite Cells Not Reportable Crenated Cell Not Reportable Elliptocytes Not Reportable Acanthocytes (Spur) Not Reportable Rouleaux Not Reportable Hemoglobin C Crystals Not Reportable Schistocytes Not Reportable Malaria parasites Not Reportable Benjamin Bodies Not Reportable Hem Pathologist Commnt No Sodium 136 L (137-145) mmol/L Potassium 3.7 (3.6-5.0) mmol/L Chloride 96.6 L (98-107) mmol/L Carbon Dioxide 24 (22-30) mmol/L Anion Gap 19 mmol/L BUN 91 H (7-17) mg/dL Creatinine 1.3 H (0.7-1.2) mg/dL Estimated GFR 39 ml/min BUN/Creatinine Ratio 70 % Glucose 162 H (65-100) mg/dL Calcium 8.2 L (8.4-10.2) mg/dL Total Bilirubin 0.60 (0.1-1.2) mg/dL AST 97 H (5-40) units/L ALT 145 H (7-56) units/L Alkaline Phosphatase 64 (35-129) units/L Ammonia (25-60) umol/L Total Protein 5.8 L (6.3-8.2) g/dL Albumin 3.1 L (3.9-5) g/dL Albumin/Globulin Ratio 1.1 % TSH 0.707 (0.270-4.200) mlU/mL Urine Color (Yellow) Urine Turbidity (Clear) Urine pH (5.0-7.0) Ur Specific [place] (1.003-1.030) Urine Protein (Negative) mg/dL Urine Glucose (UA) (Negative) mg/dL Urine Ketones (Negative) mg/dL Urine Blood (Negative) Urine Nitrite (Negative) Urine Bilirubin (Negative) Urine Urobilinogen (<2.0) mg/dL Ur Leukocyte Esterase (Negative) Urine WBC (Auto) (0.0-6.0) /HPF Urine RBC (Auto) (0.0-6.0) /HPF U Epithel Cells (Auto) (0-13.0) /HPF Urine Bacteria (Auto) (Negative) /HPF Urine Mucus /HPF Plasma/Serum Alcohol (0-0.07) % 02/22/18 02/22/18 02/22/18 Range/Units 20:49 20:49 22:58 WBC (4.5-11.0) K/mm3 RBC (3.65-5.03) M/mm3 Hgb (10.1-14.3) gm/dl Hct (30.3-42.9) % MCV (79-97) fl MCH (28-32) pg MCHC (30-34) % RDW (13.2-15.2) % Plt Count (140-440) K/mm3 Add Manual Diff Total Counted Seg Neutrophils % Seg Neuts % (Manual) (40.0-70.0) % Band Neutrophils % % Lymphocytes % (Manual) (13.4-35.0) % Reactive Lymphs % (Man) % Monocytes % (Manual) (0.0-7.3) % Eosinophils % (Manual) (0.0-4.3) % Basophils % (Manual) (0.0-1.8) % Metamyelocytes % % Myelocytes % % Promyelocytes % % Blast Cells % % Nucleated RBC % Seg Neutrophils # Man (1.8-7.7) K/mm3 Band Neutrophils # K/mm3 Lymphocytes # (Manual) (1.2-5.4) K/mm3 Abs React Lymphs (Man) K/mm3 Monocytes # (Manual) (0.0-0.8) K/mm3 Eosinophils # (Manual) (0.0-0.4) K/mm3 Basophils # (Manual) (0.0-0.1) K/mm3 Metamyelocytes # K/mm3 Myelocytes # K/mm3 Promyelocytes # K/mm3 Blast Cells # K/mm3 WBC Morphology Hypersegmented Neuts Hyposegmented Neuts Hypogranular Neuts Smudge Cells Toxic Granulation Toxic Vacuolation Dohle Bodies Pelger-Huet Anomaly Rona Rods Platelet Estimate Clumped Platelets Plt Clumps, EDTA Large Platelets Giant Platelets Platelet Satelliting Plt Morphology Comment RBC Morphology Dimorphic RBCs Polychromasia Hypochromasia Poikilocytosis Anisocytosis Microcytosis Macrocytosis Spherocytes Pappenheimer Bodies Sickle Cells Target Cells Tear Drop Cells Ovalocytes Helmet Cells Cheng-[place] Bodies [place] Rings Davis Cells Bite Cells Crenated Cell Elliptocytes Acanthocytes (Spur) Rouleaux Hemoglobin C Crystals Schistocytes Malaria parasites Benjamin Bodies Hem Pathologist Commnt Sodium (137-145) mmol/L Potassium (3.6-5.0) mmol/L Chloride (98-107) mmol/L Carbon Dioxide (22-30) mmol/L Anion Gap mmol/L BUN (7-17) mg/dL Creatinine (0.7-1.2) mg/dL Estimated GFR ml/min BUN/Creatinine Ratio % Glucose (65-100) mg/dL Calcium (8.4-10.2) mg/dL Total Bilirubin (0.1-1.2) mg/dL AST (5-40) units/L ALT (7-56) units/L Alkaline Phosphatase (35-129) units/L Ammonia 31.0 (25-60) umol/L Total Protein (6.3-8.2) g/dL Albumin (3.9-5) g/dL Albumin/Globulin Ratio % TSH (0.270-4.200) mlU/mL Urine Color Yellow (Yellow) Urine Turbidity Clear (Clear) Urine pH 8.0 H (5.0-7.0) Ur Specific [place] 1.010 (1.003-1.030) Urine Protein 30 mg/dl (Negative) mg/dL Urine Glucose (UA) Neg (Negative) mg/dL Urine Ketones Neg (Negative) mg/dL Urine Blood Sm (Negative) Urine Nitrite Neg (Negative) Urine Bilirubin Neg (Negative) Urine Urobilinogen < 2.0 (<2.0) mg/dL Ur Leukocyte Esterase Neg (Negative) Urine WBC (Auto) 2.0 (0.0-6.0) /HPF Urine RBC (Auto) 1.0 (0.0-6.0) /HPF U Epithel Cells (Auto) < 1.0 (0-13.0) /HPF Urine Bacteria (Auto) 3+ (Negative) /HPF Urine Mucus Few /HPF Plasma/Serum Alcohol < 0.01 (0-0.07) % - Medical Decision Making Ms Ventura is an 88 year-old woman who presents from home hospice with concern for neck swelling. has been present for years per granddaughter. Daughter reports over the phone that it has been presents, but does look biddger today. Hx of carotid endarterectomy on L side as well. Patient with suspected brain tumors and is DNR/DNI on home hospice. Appears well cared for on exam. stage 1 pressure ulcers on both heels. providing pads for heels. Bedside US reveals non- vascular subcutaneous mass. I suspect lipoma. Not fixed, not consistent with lymph node. Posterior to SCM. Discussed with family and hospice that we will eval for common causes of AMS, including UTI. Lytes and Cr wnl for patient, has known kidney disease. Giving 1L NS for BUN 93 which is higher than usual. UA with evidence of UTI, straight cath sample with 3+ bacterial. WBC 16. Will start levaquin 750mg qd x 5 days. Spoke with hospice and POA. Agree with plan. DC to home. Critical care attestation.: If time is entered above; I have spent that time in minutes in the direct care of this critically ill patient, excluding procedure time. ED Disposition Clinical Impression: Dehydration Urinary tract infection Qualifiers: Urinary tract infection type: acute cystitis Hematuria presence: without hematuria Qualified Code(s): N30.00 - Acute cystitis without hematuria Disposition: DC-01 TO HOME OR SELFCARE Is pt being admited?: No Does the pt Need Aspirin: No Condition: Stable Instructions: Urinary Tract Infection in Women (ED) Referrals: PRIMARY CARE, [Primary Care Provider] - 3-5 Days
[2018-02-22 21:20] LABS: Hemoglobin 14.6 gm/dl (10.1-14.3); Mean Corpuscular HGB Conc 35 % (30-34); Mean Corpuscular Hemoglobin 31 pg (28-32); Mean Corpuscular Volume 90 fl (79-97); Platelet Count 205 K/mm3 (140-440); Red Blood Count 4.65 M/mm3 (3.65-5.03); Red Cell Distribution Width 14.6 % (13.2-15.2)
[2018-02-22 21:40] LABS: Albumin 3.1 g/dL (3.9-5); Calcium 8.2 mg/dL (8.4-10.2)
[2018-02-22] MEDS ORDERED: NACL 0.9% 1000 ML 1,000 ML IV ONE (21:51)
[2018-02-22 22:13] LABS: Band Neutrophils # (Manual) 0.3 K/mm3; Basophils % (Manual) 0 % (0.0-1.8); Eosinophils % (Manual) 0 % (0.0-4.3); Total Cells Counted 100
[2018-02-22 22:14] LABS: Poikilocytosis 1+
[2018-02-22 22:15] LABS: Ovalocytes 1+
[2018-02-22 23:24] LABS: Bacteria,Urine 3+ /HPF (Negative); Bilirubin,Urine NEG (Negative); Blood,Urine SM (Negative); Color,Urine Yellow (Yellow); Mucus,Urine FEW /HPF; Urobilinogen,Urine < 2.0 mg/dL (<2.0)
[2018-02-22] MEDS ORDERED: LEVAQUIN PO ONE (23:33)
[2018-02-22 23:37] LABS: Amphetamine Screen,Urine PRESUMPTIVE NEGATIVE; Benzodiazepines Screen,Urine PRESUMPTIVE NEGATIVE; Cannabinoid Screen,Urine PRESUMPTIVE NEGATIVE; Cocaine Screen,Urine PRESUMPTIVE NEGATIVE; Methadone Screen,Urine PRESUMPTIVE NEGATIVE; Opiate Screen,Urine PRESUMPTIVE NEGATIVE
[2018-02-23 02:32] VITALS: BP 139/88
[2018-02-23] MEDS ORDERED: LEVAQUIN ONE (02:33)
== END 2018-02-23 03:51 | disposition home or self-care (01) ==
LOC: ED 19:37
DX: E86.0 Dehydration (principal); N39.0 Urinary tract infection, site not specified; I11.0 Hypertensive heart disease with heart failure; K21.9 Gastro-esophageal reflux disease without esophagitis; M19.90 Unspecified osteoarthritis, unspecified site; J45.909 Unspecified asthma, uncomplicated; M32.9 Systemic lupus erythematosus, unspecified; Z95.1 Presence of aortocoronary bypass graft; Z79.82 Long term (current) use of aspirin; Z91.040 Latex allergy status; Z88.0 Allergy status to penicillin; Z88.2 Allergy status to sulfonamides; Z90.49 Acquired absence of other specified parts of digestive tract
CPT/HCPCS: 36415; 80053; 80307; 81001; 82140; 84443; 85007; 85025; 96360; 99284; G0480; J7030; 80320